=== PATIENT | female | born 2000 | race Caucasian/White ===

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

== ENCOUNTER 2018-03-10 22:29 | Emergency (ER) | payer MEDICAID ==
[2018-03-10] MEDS ORDERED: IBUPROFEN 800 MG TABLET PO ONE (23:58)
--- NOTE | 2018-03-10 23:59 | ER Document Report ---
ED Extremity Problem, Lower - General Chief Complaint: R ankle pain, Possible UTI Stated Complaint: SWOLLEN ANKLE,URINARY ISSUES Time Seen by Provider: 03/10/18 23:44 Mode of Arrival: Wheelchair Information source: Patient Notes: Patient is a 18-year-old female who presents to the ER today for right foot pain in the arch of her foot that has been ongoing for weeks and worsening gradually. Patient denies any injury that she knows of. Patient admits to some swelling and pain that is much worse with ambulating. She denies radiation of the pain anywhere, numbness or tingling. Patient also complains of many months of burning with urination. She denies any abdominal pain or back pain, fever, chills, blood in her urine, history of kidney stones. Patient states she has not gone this checked out because she had no health insurance. TRAVEL OUTSIDE OF THE [place] IN LAST 30 DAYS: No - Related Data Allergies/Adverse Reactions: No Known Allergies Allergy (Verified 07/10/17 10:59) Past Medical History - General Information source: Patient - Social History Smoking Status: Unknown if Ever Smoked Family History: Reviewed & Not Pertinent Patient has suicidal ideation: No Patient has homicidal ideation: No Endocrine Medical History: Reports: Hx Diabetes Mellitus Type 1 Renal/ Medical History: Denies: Hx Peritoneal Dialysis Past Surgical History: Reports: Hx Oral Surgery - Immunizations Immunizations up to date: Yes Hx Diphtheria, Pertussis, Tetanus Vaccination: Yes Review of Systems - Review of Systems Constitutional: No symptoms reported EENT: No symptoms reported Cardiovascular: No symptoms reported Respiratory: No symptoms reported Gastrointestinal: No symptoms reported Genitourinary: See HPI Female Genitourinary: No symptoms reported Musculoskeletal: See HPI Skin: No symptoms reported Hematologic/Lymphatic: No symptoms reported Neurological/Psychological: No symptoms reported Physical Exam - Vital signs Vitals: Temp Pulse Resp BP Pulse Ox 98.3 F 116 H 16 123/71 98 03/10/18 22:38 03/10/18 22:38 03/10/18 22:38 03/10/18 22:38 03/10/18 22:38 - Notes Notes: PHYSICAL EXAMINATION: GENERAL: Well-appearing and in no acute distress. HEAD: Atraumatic, normocephalic. EYES: Pupils equal round and reactive to light, extraocular movements intact, sclera anicteric, conjunctiva are normal. NECK: Normal range of motion, supple without lymphadenopathy LUNGS: CTAB and equal. No wheezes rales or rhonchi. HEART: Regular rate and rhythm without murmurs ABDOMEN: Soft, no tenderness. No guarding, no rebound BACK: no vertebral tenderness, normal ROM GI/: no CVA tenderness EXTREMITIES: Normal range of motion but pain to right foot with ambulation, tender to right arch only, no pitting edema. No cyanosis. NEUROLOGICAL: Cranial nerves grossly intact. Normal sensory/motor exams. PSYCH: Normal mood, normal affect. SKIN: Warm, Dry, normal turgor, no rashes or lesions noted Course - Re-evaluation Re-evalutation: 03/11/18 01:49 Foot x-ray negative for any acute pathology. I will give patient information on plantar fasciitis and see if the stretches help her. I advised that she follow-up with primary care provider. Urinalysis pending at this time. 03/11/18 02:11 Urinalysis negative for infection. - Vital Signs Vital signs: Temp Pulse Resp BP Pulse Ox 98.6 F 100 18 117/69 98 03/11/18 02:40 03/11/18 02:40 03/11/18 02:40 03/11/18 02:40 03/11/18 02:40 - Laboratory Laboratory results interpreted by me: 03/11/18 01:34 Urine Glucose (UA) 50 H Urine Ketones TRACE H Ur Leukocyte Esterase TRACE H Discharge - Discharge Clinical Impression: Plantar fasciitis of right foot Condition: Stable Disposition: HOME, SELF-CARE Instructions: Plantar Fasciitis or Heel Spur ([facility]) Additional Instructions: Plantar fasciitis facts * Plantar fasciitis (inflammation to the plantar fascia ligament) is most commonly caused by strain injury causing micro tears to the ligament as it attaches to the heel bone or other areas of tightness on the sole of the foot. * The plantar fascia is the largest ligament in the human body. * The main symptoms of plantar fasciitis include * heel pain, * foot pain, * stiffness, and * tenderness. * Plantar fasciitis is diagnosed based on the history of the condition as well as the physical examination. * Plantar fasciitis can occur alone or be related to underlying diseases. * Plantar fasciitis is treated by measures that decrease the associated inflammation and avoid reinjury. * Plantar fasciitis is most commonly caused by repetitive strain injury to the ligament of the sole of the foot. Such strain injury can be from excessive running or walking, inadequate foot gear, and jumping injury from landing. * Plantar fasciitis is treated by measures that decrease the associated inflammation and avoid reinjury. Local ice massage applications both reduce pain and inflammation. Physical therapy methods, including stretching exercises, are used to treat and prevent plantar fasciitis. Anti-inflammatory medications, such as ibuprofen (Advil) or cortisone injections, are often helpful. Sports running shoes with soft, cushioned soles can be helpful in reducing irritation of inflamed tissues from plantar fasciitis. Custom orthotic shoe inserts are used to reduce the excess motion of the foot and decrease strain to the plantar fascia. Infrequently, surgery is performed on chronically inflamed plantar fascia (plantar fasciosis) if conservative treatments fail. Prescriptions: Ibuprofen [Motrin 800 mg Tablet] 800 mg PO Q8H PRN #30 tab PRN Reason: Referrals: RICKIE VEGA MD [Primary Care Provider] - Follow up as needed
--- NOTE | 2018-03-11 00:49 | RADIOLOGY REPORT (SQ) ---
EXAM DESCRIPTION: XR FOOT 3 OR MORE VIEWS COMPLETED DATE/TME: 03/10/2018 23:58 CLINICAL HISTORY: 18 years, Female, right foot pain/ arch COMPARISON: None. FINDINGS: 3 views of the right foot. No acute fracture or dislocation. Normal osseous mineralization. Tarsals and metatarsals are appropriately aligned. IMPRESSION: No acute fracture or dislocation. 2011 [employer]- All Rights Reserved
[2018-03-11 02:09] LABS: APPEARANCE,URINE SLIGHTLY-CLOUDY; BILIRUBIN,URINE NEGATIVE (NEGATIVE); COLOR,URINE YELLOW; GLUCOSE, URINE 50 mg/dL (NEGATIVE); KETONES,URINE TRACE mg/dL (NEGATIVE); LEUKOCYTE ESTERASE,URINE TRACE (NEGATIVE); NITRITE,URINE NEGATIVE (NEGATIVE); PROTEIN,URINE NEGATIVE (NEGATIVE); URINE SPECIFIC GRAVITY 1.025; UROBILINOGEN,URINE NEGATIVE mg/dL (<2.0)
[2018-03-11] MEDS ORDERED: IBUPROFEN 800 MG TABLET PO ONE (02:18)
[2018-03-11 02:45] VITALS: BP 117/69
== END 2018-03-11 02:40 | disposition home or self-care (01) ==
LOC: ER 22:29
DX: M72.2 Plantar fascial fibromatosis (principal); M79.671 Pain in right foot; M79.89 Other specified soft tissue disorders; R30.9 Painful micturition, unspecified; E10.9 Type 1 diabetes mellitus without complications
CPT/HCPCS: 99283; 81025; 81001; 73630; J3490

== ENCOUNTER → 2018-04-22 | Outpatient (CLI) | payer MEDICAID ==
--- NOTE | 2018-04-22 17:16 | RADIOLOGY REPORT (SQ) ---
EXAM DESCRIPTION: C SP 3 VWS OR LESS COMPLETED DATE/TIME: 04/22/2018 5:08 pm REASON FOR STUDY: LOW BACK PAIN;CERVICAL RADICULOPATHY M54.5 LOW BACK PAIN M54.12 RADICULOPATHY, C ERVICAL REGION COMPARISON: None. NUMBER OF VIEWS: Choose 2 TECHNIQUE: AP, lateral radiographic images acquired of the cervical spine. LIMITATIONS: None. FINDINGS: MINERALIZATION: Normal. ALIGNMENT: Anatomic. VERTEBRAE: Vertebral bodies of normal height. DISCS: No significant disc space narrowing. No large osteophytes. HARDWARE: None in the spine. SOFT TISSUES: No masses or calcifications. Lung apices clear. OTHER: No other significant finding. IMPRESSION: NO SIGNIFICANT RADIOGRAPHIC FINDING IN THE CERVICAL SPINE. TECHNICAL DOCUMENTATION: JOB ID: [id number] [place]-72 2010 [employer]- All Rights Reserved Reading location - IP/workstation name: [email or web address]
--- NOTE | 2018-04-22 17:17 | RADIOLOGY REPORT (SQ) ---
EXAM DESCRIPTION: LUMBAR SPINE 2 VIEWS COMPLETED DATE/TIME: 04/22/2018 5:08 pm REASON FOR STUDY: LOW BACK PAIN;CERVICAL RADICULOPATHY M54.5 LOW BACK PAIN M54.12 RADICULOPATHY, C ERVICAL REGION COMPARISON: None. NUMBER OF VIEWS: Two views. TECHNIQUE: AP and lateral radiographic images acquired of the lumbar spine. LIMITATIONS: None. FINDINGS: MINERALIZATION: Normal. SEGMENTATION: Normal. No transitional anatomy. ALIGNMENT: Normal. VERTEBRAE: Maintained height. No fracture or worrisome bone lesion. DISCS: Preserved height. No significant osteophytes or end plate irregularity. POSTERIOR ELEMENTS: Pedicles and facets are intact. No pars defect or posterior arch defects. HARDWARE: None in the spine. PARASPINAL SOFT TISSUES: Normal. PELVIS: Intact as visualized. No fractures or worrisome bone lesions. SI joints intact. OTHER: No other significant finding. IMPRESSION: NORMAL 2 VIEW LUMBAR SPINE. TECHNICAL DOCUMENTATION: JOB ID: [id number] [place]-72 2010 [employer]- All Rights Reserved Reading location - IP/workstation name: [employer]
[2018-04-22 17:40] LABS: ABSOLUTE BASOPHILS # (AUTO) 0.1 10^3/uL (0.0-0.2); ABSOLUTE EOSINOPHILS # (AUTO) 0.1 10^3/uL (0.0-0.6); ABSOLUTE LYMPHOCYTES (AUTO) 1.8 10^3/uL (0.5-4.7); ABSOLUTE MONOCYTES (AUTO) 0.4 10^3/uL (0.1-1.4); ABSOLUTE NEUT (AUTO) 5.4 10^3/uL (1.7-8.2); BASOPHILS % (AUTO) 0.9 % (0-2); EOSINOPHILS % (AUTO) 1.4 % (0-6); LYMPHOCYTES % (AUTO) 23.2 % (13-45); MEAN CORPUSCULAR HEMOGLOBIN 29.2 pg (27.0-33.4); MEAN CORPUSCULAR HGB CONC 34.2 g/dL (32.0-36.0); MEAN CORPUSCULAR VOLUME 85 fl (80-97); MONOCYTES % (AUTO) 5.6 % (3-13); PLATELET COUNT 292 10^3/uL (150-450); RED CELL DISTRIBUTION WIDTH 12.5 % (11.5-14.0); SEGMENTED NEUTROPHILS % (AUTO) 68.9 % (42-78); TOTAL CELLS COUNTED % (AUTO) 100 %; WHITE BLOOD COUNT 7.9 10^3/uL (4.0-10.5)
[2018-04-22 18:02] LABS: ALANINE AMINOTRANSFERASE 19 U/L (9-52); ALKALINE PHOSPHATASE 67 U/L (38-126); ANION GAP 12 (5-19); ASPARTATE AMINO TRANSFERASE 15 U/L (14-36); BILIRUBIN,DIRECT 0.2 mg/dL (0.0-0.4); BILIRUBIN,TOTAL 0.3 mg/dL (0.2-1.3); BLOOD UREA NITROGEN 12 mg/dL (7-20); CALCIUM 9.2 mg/dL (8.4-10.2); CARBON DIOXIDE 25 mmol/L (22-30); CHLORIDE 106 mmol/L (98-107); GLUCOSE 205 mg/dL (75-110); POTASSIUM 4.3 mmol/L (3.6-5.0); SODIUM 142.6 mmol/L (137-145); TOTAL PROTEIN 6.8 g/dL (6.3-8.2)
[2018-04-24 11:39] LABS: CREATININE URINE 122.9 mg/dL (Not Estab.); MICROALBUMIN URINE 3.6 ug/mL (Not Estab.)
== END ==
LOC: OD 16:33
PROVIDERS: ATTEND Family Medicine
DX: M54.5 Low back pain (principal); M54.12 Radiculopathy, cervical region; E10.9 Type 1 diabetes mellitus without complications; R00.2 Palpitations
CPT/HCPCS: 36415; 72040; 72100; 80053; 82043; 82570; 83036; 84443; 85025

== ENCOUNTER 2018-05-14 01:49 | Emergency (ER) | payer MEDICAID ==
[2018-05-14] MEDS ORDERED: NORMAL SALINE 1000 ML 1,000 ML IV ONE (02:51)
[2018-05-14 02:53] LABS: ABSOLUTE BASOPHILS # (AUTO) 0.1 10^3/uL (0.0-0.2); ABSOLUTE EOSINOPHILS # (AUTO) 0.1 10^3/uL (0.0-0.6); ABSOLUTE LYMPHOCYTES (AUTO) 2.8 10^3/uL (0.5-4.7); ABSOLUTE MONOCYTES (AUTO) 0.8 10^3/uL (0.1-1.4); ABSOLUTE NEUT (AUTO) 5.6 10^3/uL (1.7-8.2); BASOPHILS % (AUTO) 0.8 % (0-2); EOSINOPHILS % (AUTO) 1.5 % (0-6); LYMPHOCYTES % (AUTO) 29.9 % (13-45); MEAN CORPUSCULAR HGB CONC 34.2 g/dL (32.0-36.0); MEAN CORPUSCULAR VOLUME 85 fl (80-97); MONOCYTES % (AUTO) 8.3 % (3-13); PLATELET COUNT 319 10^3/uL (150-450); RED BLOOD COUNT 4.84 10^6/uL (3.72-5.28); RED CELL DISTRIBUTION WIDTH 12.7 % (11.5-14.0); SEGMENTED NEUTROPHILS % (AUTO) 59.5 % (42-78); TOTAL CELLS COUNTED % (AUTO) 100 %; WHITE BLOOD COUNT 9.4 10^3/uL (4.0-10.5)
[2018-05-14 03:08] LABS: ALANINE AMINOTRANSFERASE 15 U/L (9-52); ALKALINE PHOSPHATASE 93 U/L (38-126); ANION GAP 10 (5-19); ASPARTATE AMINO TRANSFERASE 15 U/L (14-36); BILIRUBIN,DIRECT 0.4 mg/dL (0.0-0.4); BILIRUBIN,TOTAL 0.4 mg/dL (0.2-1.3); BLOOD UREA NITROGEN 9 mg/dL (7-20); CALCIUM 9.4 mg/dL (8.4-10.2); CARBON DIOXIDE 23 mmol/L (22-30); CHLORIDE 107 mmol/L (98-107); GLUCOSE 153 mg/dL (75-110); POTASSIUM 3.8 mmol/L (3.6-5.0); SODIUM 139.9 mmol/L (137-145)
[2018-05-14] MEDS ORDERED: ONDANSETRON HCL INJ/PF 4 MG/2 ML SDV IV ONE (03:38)
[2018-05-14] MEDS ORDERED: MORPHINE SULFATE 10 MG/ML INJ IV ONE (03:38)
--- NOTE | 2018-05-14 03:39 | ER Document Report ---
ED GI/ - General Chief Complaint: Abdominal Pain Stated Complaint: ABDOMINAL PAIN Time Seen by Provider: 05/14/18 03:30 Notes: Patient is a 18-year-old female that comes to the emergency department for chief complaint of right lower abdominal pain. She states that she suddenly felt a sharp pain that made her gasp and grabbed her abdomen, she felt nauseated , she states that the very sharp pain has begun to subside and now it feels like sharp and intermittent pain which is not as bad. She still feels nausea. She denies vomiting. She denies injury, vaginal bleeding or discharge, dysuria , flank pain. She is a type I diabetic on an insulin pump. Only surgery reported is dental. TRAVEL OUTSIDE OF THE [place] IN LAST 30 DAYS: No - Related Data Allergies/Adverse Reactions: No Known Allergies Allergy (Verified 07/10/17 10:59) Past Medical History - General Information source: Patient - Social History Smoking Status: Never Smoker Frequency of alcohol use: None Drug Abuse: None Lives with: Family Family History: Reviewed & Not Pertinent Patient has suicidal ideation: No Patient has homicidal ideation: No Endocrine Medical History: Reports: Hx Diabetes Mellitus Type 1 Renal/ Medical History: Denies: Hx Peritoneal Dialysis Past Surgical History: Reports: Hx Oral Surgery - wisdom teeth - Immunizations Immunizations up to date: Yes Hx Diphtheria, Pertussis, Tetanus Vaccination: Yes Review of Systems - Review of Systems Constitutional: No symptoms reported EENT: No symptoms reported Cardiovascular: No symptoms reported Respiratory: No symptoms reported Gastrointestinal: See HPI Genitourinary: See HPI Female Genitourinary: See HPI Musculoskeletal: No symptoms reported Skin: No symptoms reported Hematologic/Lymphatic: No symptoms reported Neurological/Psychological: No symptoms reported Physical Exam - Vital signs Vitals: Temp Pulse Resp BP Pulse Ox 98.6 F 62 19 123/71 93 05/14/18 02:01 05/14/18 02:01 05/14/18 02:01 05/14/18 02:01 05/14/18 02:01 - Notes Notes: GENERAL: Alert, interacts well. No acute distress. HEAD: Normocephalic, atraumatic. EYES: Pupils equal, round, and reactive to light. Extraocular movements intact. ENT: Oral mucosa moist, tongue midline. NECK: Full range of motion. Supple. Trachea midline. LUNGS: Clear to auscultation bilaterally, no wheezes, rales, or rhonchi. No respiratory distress. HEART: Regular rate and rhythm. No murmur ABDOMEN: Tenderness in the right pelvic area, no specific McBurney's point tenderness, remaining abdomen soft and benign. No rigidity, guarding, or rebound tenderness. EXTREMITIES: Moves all 4 extremities spontaneously. No edema, normal radial and dorsalis pedis pulses bilaterally. No cyanosis. BACK: no cervical, thoracic, lumbar midline tenderness. No saddle anesthesia, normal distal neurovascular exam. NEUROLOGICAL: Alert and oriented x3. Normal speech. [cranial nerves II through XII grossly intact]. PSYCH: Normal affect, normal mood. SKIN: Warm, dry, normal turgor. No rashes or lesions noted. Course - Re-evaluation Re-evalutation: No official read is given but preliminary results given by [employer] and early images indicate free fluid around the right ovarian area, no cyst, no torsion, good blood flow to the area/ovary, no acute findings otherwise. CBC, chemistry, urinalysis generally unremarkable. Glucose is 150, anion gap and bicarbonate are normal. After medications patient asymptomatic. Patient's physical examination does indicate pelvic pain. She declines pelvic exam. Clinical picture is most consistent with ovarian cyst that has ruptured. No additional concerns at this time. I discussed results with patient. She is very satisfied with this. Discussed medications, given a few pain medications to go home with from here, discussed expectations, follow-up, and return precautions. Patient states understanding and agreement. - Vital Signs Vital signs: Temp Pulse Resp BP Pulse Ox 98.1 F 93 18 105/53 L 100 05/14/18 07:12 05/14/18 07:12 05/14/18 07:12 05/14/18 07:12 05/14/18 07:12 - Laboratory Result Diagrams: 05/14/18 02:45 05/14/18 02:45 Laboratory results interpreted by me: 05/14/18 05/14/18 02:45 05:30 Creatinine 0.42 L Glucose 153 H Urine Glucose (UA) >=1000 H Urine Ketones 100 H Ur Leukocyte Esterase TRACE H Discharge - Discharge Clinical Impression: Pelvic pain Condition: Stable Disposition: HOME, SELF-CARE Additional Instructions: Your evaluation is consistent with a ruptured ovarian cyst. Symptoms from this should resolve with time. You have been provided with a few pain medications if needed, you can take ibuprofen for pain as well. Follow-up with primary care. Return if you worsen including severe pain, vomiting, fever of 100.4 or greater, or any other concerning symptoms. Referrals: ALEE PERRIN MD [COMMUNITY BASED STAFF] - Follow up as needed
[2018-05-14 06:35] LABS: APPEARANCE,URINE CLEAR; BILIRUBIN,URINE NEGATIVE (NEGATIVE); COLOR,URINE STRAW; GLUCOSE, URINE >=1000 mg/dL (NEGATIVE); KETONES,URINE 100 mg/dL (NEGATIVE); LEUKOCYTE ESTERASE,URINE TRACE (NEGATIVE); NITRITE,URINE NEGATIVE (NEGATIVE); PROTEIN,URINE NEGATIVE (NEGATIVE); URINE SPECIFIC GRAVITY 1.022; UROBILINOGEN,URINE NEGATIVE mg/dL (<2.0)
[2018-05-14] MEDS ORDERED: HYDROCODONE/ACETAMINOPHEN 5-325 MG (6 TAB/ER DISP) PO PRN (07:03)
[2018-05-14 07:14] VITALS: BP 105/53
--- NOTE | 2018-05-14 07:51 | RADIOLOGY REPORT (SQ) ---
EXAM DESCRIPTION: US TRANSVAGINAL COMPLETED DATE/TME: 05/14/2018 03:38 CLINICAL HISTORY: 18 years, Female, right pelvic pain, nausea COMPARISON: None. TECHNIQUE: Complete pelvic ultrasound with transvaginal imaging. Limited color and spectral Doppler imaging of the ovaries. FINDINGS: The cervix measures 1.7 cm in length. The uterus measures 7.1 x 4.7 x 5.9 cm. Endometrial thickness of 1.9 cm. No myometrial abnormalities. Small amount of free pelvic fluid. The left ovary is not identified. No large adnexal masses. The right ovary measures 2.1 x 3.0 x 2.3 cm. Limited color spectral Doppler imaging demonstrates flow in the right ovary. IMPRESSION: 1. Thickening of the endometrium measuring 1.9 cm. This could be seen with endometrial hyperplasia. Follow-up pelvic ultrasound in 6 weeks recommended. 2. Small amount of free pelvic fluid. This may be physiologic. 2011 [employer]- All Rights Reserved
--- NOTE | 2018-05-14 15:28 | EKG REPORT ---
SEVERITY:- NORMAL ECG - SINUS RHYTHM : Confirmed by: Ivonne Roberts MD 14-May-2018 15:27:22
== END 2018-05-14 07:16 | disposition home or self-care (01) ==
LOC: ER 01:49
DX: R10.2 Pelvic and perineal pain (principal); R11.0 Nausea; E10.9 Type 1 diabetes mellitus without complications; Z96.41 Presence of insulin pump (external) (internal)
CPT/HCPCS: 93005; 99284; 96374; 36415; 83690; 85025; 81025; 80053; 81001; 76830; 93976; 93010; J2270; J2405

== ENCOUNTER 2018-06-24 10:05 | Emergency (ER) | payer MEDICAID ==
[2018-06-24] MEDS ORDERED: NORMAL SALINE 1000 ML 1,000 ML IV PRN (10:14)
[2018-06-24] MEDS ORDERED: NORMAL SALINE 1000 ML 1,000 ML IV ONE ×2 (10:14→12:46)
--- NOTE | 2018-06-24 10:18 | ER Document Report ---
ED Medical Screen (RME) - General Chief Complaint: Nausea/Vomiting/Diarrhea Stated Complaint: VOMITING/NAUSEA Time Seen by Provider: 06/24/18 10:14 Notes: 18 years old male with a history of type 1 diabetes on insulin pump, presents today with general malaise fatigue weakness tiredness vomited couple of times and had couple of loose bowel movements. Since yesterday. The whole family is sick with viral illness. Denies any dysuria frequency urgency. Denies any earache sore throat productive cough. On examination-appears to be moderate discomfort. TRAVEL OUTSIDE OF THE [place] IN LAST 30 DAYS: No - Related Data Allergies/Adverse Reactions: No Known Allergies Allergy (Verified 06/24/18 10:06) Past Medical History Endocrine Medical History: Reports: Hx Diabetes Mellitus Type 1 Renal/ Medical History: Denies: Hx Peritoneal Dialysis Past Surgical History: Reports: Hx Oral Surgery - wisdom teeth - Immunizations Immunizations up to date: Yes Hx Diphtheria, Pertussis, Tetanus Vaccination: Yes Physical Exam - Vital signs Vitals: Temp Pulse Resp BP Pulse Ox 99.6 F 124 H 14 121/73 96 06/24/18 10:09 06/24/18 10:09 06/24/18 10:09 06/24/18 10:09 06/24/18 10:09 Course - Vital Signs Vital signs: Temp Pulse Resp BP Pulse Ox 99.6 F 124 H 14 121/73 96 06/24/18 10:09 06/24/18 10:09 06/24/18 10:09 06/24/18 10:09 06/24/18 10:09
[2018-06-24] MEDS ORDERED: ONDANSETRON HCL INJ/PF 4 MG/2 ML SDV IV ONE (10:54)
--- NOTE | 2018-06-24 11:06 | ER Document Report ---
ED General - General Chief Complaint: Nausea/Vomiting/Diarrhea Stated Complaint: VOMITING/NAUSEA Time Seen by Provider: 06/24/18 10:14 TRAVEL OUTSIDE OF THE [place] IN LAST 30 DAYS: No - HPI Notes: Patient is a 18-year-old female with a history of insulin-dependent diabetes who presents to the ED with mother complaining of nausea, vomiting, diarrhea over the last day. Patient states that she vomited twice, but does have continued nausea. Her last emesis was yesterday. She has had 2 loose stools as well without any melena or hematochezia. Patient states that she has generalized abdominal cramping. Patient states that she had symptoms like this 2 weeks ago and passed it to another household member who has continued to pass this illness throughout the home that has made its way back to her yesterday. Patient states that she started seeing ketones in her home urinary test that she wanted to get evaluated and make sure that she is not going into DKA. Denies any drug allergies. No other concerns or complaints. Her last menstrual period was a few days ago. Denies any headache, fever, changes in mentation/behavior, URI, sore throat, chest pain, palpitations, syncope, cough, shortness of breath, wheeze, dyspnea, urinary retention, dysuria, hematuria, back pain, or rash. - Related Data Allergies/Adverse Reactions: No Known Allergies Allergy (Verified 06/24/18 10:06) Past Medical History - Social History Smoking Status: Never Smoker Chew tobacco use (# tins/day): No Frequency of alcohol use: None Drug Abuse: None Family History: Reviewed & Not Pertinent Patient has suicidal ideation: No Patient has homicidal ideation: No Endocrine Medical History: Reports: Hx Diabetes Mellitus Type 1 Renal/ Medical History: Denies: Hx Peritoneal Dialysis Past Surgical History: Reports: Hx Oral Surgery - wisdom teeth - Immunizations Immunizations up to date: Yes Hx Diphtheria, Pertussis, Tetanus Vaccination: Yes Review of Systems - Review of Systems -: Yes All other systems reviewed and negative Physical Exam - Vital signs Vitals: Temp Pulse Resp BP Pulse Ox 99.6 F 124 H 14 121/73 96 06/24/18 10:09 06/24/18 10:09 06/24/18 10:09 06/24/18 10:09 06/24/18 10:09 - Notes Notes: PHYSICAL EXAMINATION: GENERAL: Well-appearing, well-nourished and in no acute distress. A&Ox4. Answers questions appropriately. HEAD: Atraumatic, normocephalic. EYES: Pupils equal round and reactive to light, extraocular movements intact, sclera anicteric, conjunctiva are normal. ENT:Nares patent and without discharge. oropharynx clear without exudates. No tonsilar hypertrophy or erythema. Moist mucous membranes. NECK: Normal range of motion, supple without lymphadenopathy LUNGS: Breath sounds clear to auscultation bilaterally and equal. No wheezes rales or rhonchi. HEART: Regular rate and rhythm without murmurs, rubs, gallops. ABDOMEN: Soft, nontender, nondistended abdomen. No guarding, no rebound. No masses appreciated. Normal bowel sounds present. No CVA tenderness bilaterally. Musculoskeletal: FROM to passive/active. Strength 5+/5. Extremities: No cyanosis, clubbing, or edema b/l. Peripheral pulses 2+. Capillary refill less than 3 seconds. NEUROLOGICAL: Cranial nerves grossly intact. Normal speech, normal gait. PSYCH: Normal mood, normal affect. SKIN: Warm, Dry, normal turgor, no rashes or lesions noted. Course - Re-evaluation Re-evalutation: 06/24/18 12:19 Patient is an afebrile, well-hydrated, 18-year-old female who presents to the ED with nausea/vomiting/diarrhea, suspect viral gastroenteritis. Vitals are acceptable without any significant tachycardia, tachypnea, or hypoxia. PE is otherwise unremarkable. Patient's abdomen is soft nontender currently. She is nontoxic-appearing and is tolerating p.o. without difficulties. CBC, CMP, lipase, urinalysis, hCG, venous blood gas were all unremarkable for any acute pathology. No further labs or imaging warranted at this time. Patient has a known illness around her household that has the same symptoms. Low suspicion/ risk for acute appendicitis, bowel obstruction, acute cholecystitis, acute cholangitis, perforated diverticulitis, incarcerated hernia, pancreatitis, perforated ulcer, peritonitis, sepsis, pelvic inflammatory disease, ectopic , tubo-ovarian abscess, ovarian torsion, or other systemic emergent condition at this time. Patient is aware that her condition can change from initial presentation and she needs to monitor symptoms closely and seek medical attention if any acute changes. I will send her home with a prescription for Zofran. Conservative measures otherwise for symptoms. Recheck with your PCM in 2-3 days. Consider consult with a power plant assistant. Return to the ED with any worsening/concerning symptoms otherwise as reviewed in discharge. Patient is in agreement. - Vital Signs Vital signs: Temp Pulse Resp BP Pulse Ox 99.6 F 124 H 14 121/73 96 06/24/18 10:09 06/24/18 10:09 06/24/18 10:09 06/24/18 10:09 06/24/18 10:09 - Laboratory Result Diagrams: 06/24/18 10:34 06/24/18 10:34 Laboratory results interpreted by me: 06/24/18 06/24/18 06/24/18 10:15 10:34 10:34 Seg Neutrophils % 80.9 H Lymphocytes % 11.6 L Glucose 155 H POC Glucose 177 H Lipase Urine Glucose (UA) Urine Ketones Ur Leukocyte Esterase 06/24/18 06/24/18 10:34 10:34 Seg Neutrophils % Lymphocytes % Glucose POC Glucose Lipase 17.9 L Urine Glucose (UA) >=500 H Urine Ketones 20 H Ur Leukocyte Esterase MODERATE H Discharge - Discharge Clinical Impression: Nausea vomiting and diarrhea Condition: Stable Disposition: HOME, SELF-CARE Instructions: Antinausea Medication ([facility]), Diarrhea, Nonspecific ([facility]) Additional Instructions: Maintain adequate fluid and food intake [place] diet ([employer] Bananas, rice, apples, toast, etc Zofran as needed tylenol if needed Monitor for any worsening symptoms Make sure you are staying hydrated enough to urinate and have normal BM's Recheck with your PCM in 2-3 days Consider consult with Gastroenterology for ongoing/worsening symptoms Return to the ED with any worsening symptoms and/or development of fever, headache, chest pain, palpitations, syncope, shortness of breath, trouble breathing, abdominal pain, n/v/d, blood in stool/urine, weakness, or other worsening symptoms that are concerning to you. Prescriptions: Loperamide HCl [Imodium 2 mg Capsule] 2 mg PO PRN PRN #21 cap PRN Reason: Ondansetron [Zofran Odt 4 mg Tablet] 1 - 2 tab PO Q4H PRN #15 tab.rapdis PRN Reason: For Nausea/Vomiting Referrals: GLADYS PASCAL MD [ACTIVE STAFF] - Follow up as needed
[2018-06-24 11:07] LABS: ABSOLUTE MONOCYTES (AUTO) 0.6 10^3/uL (0.1-1.4); ABSOLUTE NEUT (AUTO) 7.1 10^3/uL (1.7-8.2); BASOPHILS % (AUTO) 0.4 % (0-2); EOSINOPHILS % (AUTO) 0.5 % (0-6); HEMATOCRIT 43.2 % (36.0-47.0); HEMOGLOBIN 15.1 g/dL (12.0-15.5); LYMPHOCYTES % (AUTO) 11.6 % (13-45); MEAN CORPUSCULAR HEMOGLOBIN 29.4 pg (27.0-33.4); MEAN CORPUSCULAR VOLUME 84 fl (80-97); MONOCYTES % (AUTO) 6.6 % (3-13); PLATELET COUNT 339 10^3/uL (150-450); RED BLOOD COUNT 5.13 10^6/uL (3.72-5.28); RED CELL DISTRIBUTION WIDTH 12.5 % (11.5-14.0); SEGMENTED NEUTROPHILS % (AUTO) 80.9 % (42-78); TOTAL CELLS COUNTED % (AUTO) 100 %; WHITE BLOOD COUNT 8.8 10^3/uL (4.0-10.5)
[2018-06-24 11:08] LABS: VENOUS BLOOD HCO3 26.8 mmol/L (20-32); VENOUS BLOOD PCO2 42.3 mmHg (35-63); VENOUS BLOOD PH 7.42 (7.30-7.42)
[2018-06-24] MEDS ORDERED: MORPHINE SULFATE 10 MG/ML INJ IV ONE (11:16)
[2018-06-24 11:19] LABS: APPEARANCE,URINE SLIGHTLY-CLOUDY; BILIRUBIN,URINE NEGATIVE (NEGATIVE); COLOR,URINE YELLOW; GLUCOSE, URINE >=500 mg/dL (NEGATIVE); KETONES,URINE 20 mg/dL (NEGATIVE); LEUKOCYTE ESTERASE,URINE MODERATE (NEGATIVE); NITRITE,URINE NEGATIVE (NEGATIVE); PROTEIN,URINE NEGATIVE (NEGATIVE); URINE SPECIFIC GRAVITY 1.016; UROBILINOGEN,URINE NEGATIVE mg/dL (<2.0)
[2018-06-24 11:31] LABS: ALANINE AMINOTRANSFERASE 21 U/L (9-52); ALBUMIN 4.4 g/dL (3.5-5.0); ALKALINE PHOSPHATASE 73 U/L (38-126); ANION GAP 13 (5-19); ASPARTATE AMINO TRANSFERASE 17 U/L (14-36); BILIRUBIN,DIRECT 0.2 mg/dL (0.0-0.4); BILIRUBIN,TOTAL 0.8 mg/dL (0.2-1.3); BLOOD UREA NITROGEN 10 mg/dL (7-20); CALCIUM 9.6 mg/dL (8.4-10.2); CARBON DIOXIDE 28 mmol/L (22-30); CHLORIDE 100 mmol/L (98-107); GLUCOSE 155 mg/dL (75-110); POTASSIUM 4.3 mmol/L (3.6-5.0); SODIUM 140.7 mmol/L (137-145); TOTAL PROTEIN 7.5 g/dL (6.3-8.2)
[2018-06-24 12:13] LABS: A TYPE INFLUENZA AG NEGATIVE (NEGATIVE); B INFLUENZA AG NEGATIVE (NEGATIVE)
[2018-06-24 13:57] VITALS: BP 112/60
== END 2018-06-24 14:05 | disposition home or self-care (01) ==
LOC: ER 10:05
DX: R11.2 Nausea with vomiting, unspecified (principal); R19.7 Diarrhea, unspecified; R10.84 Generalized abdominal pain; E10.9 Type 1 diabetes mellitus without complications
CPT/HCPCS: 99284; 96361; 96374; 96375; 36415; 82962; 83690; 85025; 81025; 80053; 81001; 82803; 87804; J2270; J2405; J7030

== ENCOUNTER 2018-07-03 14:26 | Emergency (ER) | payer SELFPAY ==
[2018-07-03] MEDS ORDERED: NORMAL SALINE 1000 ML 1,000 ML IV ONE (15:38)
[2018-07-03] MEDS ORDERED: IPRATROPIUM/ALBUTEROL 0.5-2.5 MG/3 ML AMPUL NEB ONE (15:38)
--- NOTE | 2018-07-03 15:43 | RADIOLOGY REPORT (SQ) ---
EXAM DESCRIPTION: CHEST 2 VIEWS COMPLETED DATE/TIME: 07/03/2018 3:25 pm REASON FOR STUDY: sob COMPARISON: June 2017 EXAM PARAMETERS: NUMBER OF VIEWS: two views TECHNIQUE: Digital Frontal and Lateral radiographic views of the chest acquired. RADIATION DOSE: NA LIMITATIONS: none FINDINGS: LUNGS AND PLEURA: No opacities, masses or pneumothorax. No pleural effusion. MEDIASTINUM AND HILAR STRUCTURES: No masses or contour abnormalities. HEART AND VASCULAR STRUCTURES: Heart normal size. No evidence for failure. BONES: No acute findings. HARDWARE: None in the chest. OTHER: No other significant finding. IMPRESSION: NO ACUTE RADIOGRAPHIC FINDING IN THE CHEST. TECHNICAL DOCUMENTATION: JOB ID: [id number] [employer]- All Rights Reserved Reading location - IP/workstation name: [email or web address]
[2018-07-03 16:08] LABS: ABSOLUTE BASOPHILS # (AUTO) 0.1 10^3/uL (0.0-0.2); ABSOLUTE EOSINOPHILS # (AUTO) 0.1 10^3/uL (0.0-0.6); ABSOLUTE LYMPHOCYTES (AUTO) 2.3 10^3/uL (0.5-4.7); ABSOLUTE MONOCYTES (AUTO) 0.6 10^3/uL (0.1-1.4); ABSOLUTE NEUT (AUTO) 5.9 10^3/uL (1.7-8.2); BASOPHILS % (AUTO) 1.2 % (0-2); EOSINOPHILS % (AUTO) 1.5 % (0-6); HEMATOCRIT 42.9 % (36.0-47.0); HEMOGLOBIN 15.2 g/dL (12.0-15.5); MEAN CORPUSCULAR HEMOGLOBIN 29.7 pg (27.0-33.4); MEAN CORPUSCULAR HGB CONC 35.4 g/dL (32.0-36.0); MEAN CORPUSCULAR VOLUME 84 fl (80-97); MONOCYTES % (AUTO) 6.7 % (3-13); PLATELET COUNT 393 10^3/uL (150-450); RED BLOOD COUNT 5.11 10^6/uL (3.72-5.28); RED CELL DISTRIBUTION WIDTH 12.3 % (11.5-14.0); SEGMENTED NEUTROPHILS % (AUTO) 65.6 % (42-78); TOTAL CELLS COUNTED % (AUTO) 100 %
[2018-07-03] MEDS ORDERED: ONDANSETRON HCL INJ/PF 4 MG/2 ML SDV IV ONE (16:08)
[2018-07-03] MEDS ORDERED: PROCHLORPERAZINE EDISYLATE INJ 10 MG/2 ML VIAL IV ONE (16:08)
[2018-07-03 16:32] LABS: BLOOD UREA NITROGEN 13 mg/dL (7-20); GLUCOSE 148 mg/dL (75-110)
[2018-07-03 16:33] LABS: ANION GAP 14 (5-19); CARBON DIOXIDE 27 mmol/L (22-30); CHLORIDE 102 mmol/L (98-107); POTASSIUM 4.7 mmol/L (3.6-5.0); SODIUM 143.3 mmol/L (137-145)
[2018-07-03 17:05] LABS: VENOUS BLOOD BASE EXCESS -2.5 mmol/L; VENOUS BLOOD HCO3 23.9 mmol/L (20-32); VENOUS BLOOD PH 7.32 (7.30-7.42)
--- NOTE | 2018-07-03 18:00 | ER Document Report ---
ED General - General Chief Complaint: Breathing Difficulty Stated Complaint: BREATHING PROBLEMS Time Seen by Provider: 07/03/18 14:58 TRAVEL OUTSIDE OF THE [place] IN LAST 30 DAYS: No - HPI Patient complains to provider of: Difficulty breathing Notes: Patient states to painful breathing was seen by her PCP today and encouraged coming to the ER for further evaluation for possible DVT. Patient is a type I diabetic and does have an insulin pump patient states recently changed her site to her left arm. Patient states the change in size approximately 2-3 days. Patient otherwise is having some lightheaded and dizziness. Denies any fever chills nausea vomiting diarrhea denies any recent travel denies a history of PE denies history of smoking denies any other lung pathology COPD or asthma. Patient is resting comfortably upon my evaluation. Patient states the pain is similar to whenever exerting herself only cold Sunday burning sensation within the lungs. - Related Data Allergies/Adverse Reactions: No Known Allergies Allergy (Verified 07/03/18 14:33) Past Medical History - Social History Smoking Status: Never Smoker Chew tobacco use (# tins/day): No Frequency of alcohol use: None Drug Abuse: None Family History: Reviewed & Not Pertinent Patient has suicidal ideation: No Patient has homicidal ideation: No Endocrine Medical History: Reports: Hx Diabetes Mellitus Type 1 Renal/ Medical History: Denies: Hx Peritoneal Dialysis Past Surgical History: Reports: Hx Oral Surgery - wisdom teeth - Immunizations Immunizations up to date: Yes Hx Diphtheria, Pertussis, Tetanus Vaccination: Yes Review of Systems - Review of Systems Constitutional: No symptoms reported EENT: No symptoms reported Cardiovascular: No symptoms reported Respiratory: Other - Painful respirations Gastrointestinal: No symptoms reported Genitourinary: No symptoms reported Female Genitourinary: No symptoms reported Musculoskeletal: No symptoms reported Skin: No symptoms reported Hematologic/Lymphatic: No symptoms reported Neurological/Psychological: No symptoms reported Physical Exam - Vital signs Vitals: Temp Pulse Resp BP Pulse Ox 99.1 F 109 H 16 102/85 97 07/03/18 14:37 07/03/18 14:37 07/03/18 14:37 07/03/18 14:37 07/03/18 14:37 Interpretation: Normal - General General appearance: Appears well, Alert - HEENT Head: Normocephalic, Atraumatic Eyes: Normal Pupils: PERRL - Respiratory Respiratory status: No respiratory distress Chest status: Nontender Breath sounds: Wheezing Chest palpation: Normal - Cardiovascular Rhythm: Regular Heart sounds: Normal auscultation Murmur: No - Abdominal Inspection: Normal Distension: No distension Bowel sounds: Normal Tenderness: Nontender Organomegaly: No organomegaly - Back Back: Normal, Nontender - Extremities General upper extremity: Normal inspection, Nontender, Normal color, Normal ROM , Normal temperature General lower extremity: Normal inspection, Nontender, Normal color, Normal ROM , Normal temperature, Normal weight bearing. No: Raciel's sign - Neurological Neuro grossly intact: Yes Cognition: Normal Orientation: AAOx4 Pat Coma Scale Eye Opening: Spontaneous Pat Coma Scale Verbal: Oriented Pat Coma Scale Motor: Obeys Commands [place] Coma Scale Total: 15 Speech: Normal Motor strength normal: LUE, RUE, LLE, RLE Sensory: Normal - Psychological Associated symptoms: Normal affect, Normal mood - Skin Skin Temperature: Warm Skin Moisture: Dry Skin Color: Normal Course - Re-evaluation Re-evalutation: 07/03/18 22:30 Laboratory testing not show any acute pathology chest x-ray is also negative. Patient's d-dimer is also negative. Slight wheezing in the bases improved after breathing treatment. Possible early presentation of a viral illness. No critical pathology seen patient will be encouraged to follow-up primary care physician return to ER symptoms worsen use the inhaler was given here in ER 2 puffs every 4 hours. - Vital Signs Vital signs: Temp Pulse Resp BP Pulse Ox 99.2 F 111 H 18 121/69 97 07/03/18 18:34 07/03/18 18:34 07/03/18 18:34 07/03/18 18:34 07/03/18 14:37 - Laboratory Result Diagrams: 07/03/18 15:51 07/03/18 15:51 Laboratory results interpreted by me: 07/03/18 15:51 Creatinine 0.51 L Glucose 148 H Discharge - Discharge Clinical Impression: Painful breathing, Lightheadedness Condition: Good Disposition: HOME, SELF-CARE Instructions: Dizziness ([facility]), Dyspnea, Nonspecific ([facility]) Additional Instructions: Your laboratory studies did not show any signs of infection or any signs of blood clots. This could be the beginning of a viral illness. I highly recommend she follow-up with your primary care physician return to ER symptoms worsen. use the inhaler that we gave you here in the ER 2 puffs every 4 hours as needed for any shortness of breath. Please make sure you are drinking plenty water
[2018-07-03] MEDS ORDERED: ALBUTEROL SULFATE HFA (90 MCG/PUFF) 8 GM MDI (1 MDI/ER DISP) IH ONE (18:01)
[2018-07-03 18:35] VITALS: BP 121/69
== END 2018-07-03 18:55 | disposition home or self-care (01) ==
LOC: ER 14:26
DX: R07.1 Chest pain on breathing (principal); R06.2 Wheezing; E10.9 Type 1 diabetes mellitus without complications; Z96.41 Presence of insulin pump (external) (internal); R42 Dizziness and giddiness
CPT/HCPCS: 94640; 99285; 96360; 36415; 83735; 84703; 85025; 80048; 85379; 82803; 71046; J7030; J3490; J7620

== ENCOUNTER 2018-10-23 22:40 | Emergency (ER) | payer MEDICAID ==
--- NOTE | 2018-10-24 01:46 | RADIOLOGY REPORT (SQ) ---
EXAM DESCRIPTION: XR FOOT 3 OR MORE VIEWS COMPLETED DATE/TME: 10/23/2018 23:35 CLINICAL HISTORY: 18 years, Female, pain COMPARISON: None. FINDINGS: No fracture or dislocation. Soft tissues are unremarkable. IMPRESSION: No acute abnormality.
[2018-10-24 01:59] LABS: ABSOLUTE BASOPHILS # (AUTO) 0.1 10^3/uL (0.0-0.2); ABSOLUTE EOSINOPHILS # (AUTO) 0.1 10^3/uL (0.0-0.6); ABSOLUTE LYMPHOCYTES (AUTO) 2.8 10^3/uL (0.5-4.7); ABSOLUTE MONOCYTES (AUTO) 0.9 10^3/uL (0.1-1.4); ABSOLUTE NEUT (AUTO) 5.5 10^3/uL (1.7-8.2); EOSINOPHILS % (AUTO) 1.1 % (0-6); HEMATOCRIT 39.1 % (36.0-47.0); HEMOGLOBIN 13.7 g/dL (12.0-15.5); LYMPHOCYTES % (AUTO) 29.8 % (13-45); MEAN CORPUSCULAR HEMOGLOBIN 29.8 pg (27.0-33.4); MEAN CORPUSCULAR VOLUME 85 fl (80-97); MONOCYTES % (AUTO) 9.3 % (3-13); PLATELET COUNT 339 10^3/uL (150-450); RED CELL DISTRIBUTION WIDTH 13.2 % (11.5-14.0); SEGMENTED NEUTROPHILS % (AUTO) 58.8 % (42-78); TOTAL CELLS COUNTED % (AUTO) 100 %; WHITE BLOOD COUNT 9.3 10^3/uL (4.0-10.5)
--- NOTE | 2018-10-24 02:53 | ER Document Report ---
ED General - General Chief Complaint: Foot Injury Stated Complaint: FOOT PAIN Time Seen by Provider: 10/24/18 00:13 Primary Care Provider: ALEE PERRIN MD [Primary Care Provider] - Follow up as needed TRAVEL OUTSIDE OF THE [place] IN LAST 30 DAYS: No - HPI Patient complains to provider of: Left foot pain rectal bleeding Notes: Patient patient coming for evaluation of left foot pain and rectal bleeding. Patient states rectal bleeding ongoing for the last 4 years intermittently. 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 Patient states bright red blood in the toilet bowl and also upon wiping. Patient denies any changes in her stool denies any trauma currently resting denies any abdominal pain. Denies fevers chills nausea vomiting Patient also complains of left foot pain. Patient points to the base of the fifth states that over 48 hours ago patient was moving stepped wrong and had pain to the dorsum of the foot. Patient states the pain continued patient otherwise is resting comfortably upon my evaluation. - Related Data Allergies/Adverse Reactions: No Known Allergies Allergy (Verified 07/03/18 14:33) Past Medical History - Social History Smoking Status: Never Smoker Family History: Reviewed & Not Pertinent Patient has suicidal ideation: No Patient has homicidal ideation: No Endocrine Medical History: Reports: Hx Diabetes Mellitus Type 1 Renal/ Medical History: Denies: Hx Peritoneal Dialysis Past Surgical History: Reports: Hx Oral Surgery - wisdom teeth - Immunizations Immunizations up to date: Yes Hx Diphtheria, Pertussis, Tetanus Vaccination: Yes Review of Systems - Review of Systems Constitutional: No symptoms reported EENT: No symptoms reported Cardiovascular: No symptoms reported Respiratory: No symptoms reported Gastrointestinal: Rectal bleeding Genitourinary: No symptoms reported Female Genitourinary: No symptoms reported Musculoskeletal: Other - Foot pain Skin: No symptoms reported Hematologic/Lymphatic: No symptoms reported Neurological/Psychological: No symptoms reported -: Yes All other systems reviewed and negative Physical Exam - Vital signs Vitals: Temp Pulse Resp BP Pulse Ox 98.9 F 107 H 20 125/73 100 10/23/18 22:54 10/23/18 22:54 10/23/18 22:54 10/23/18 22:54 10/23/18 22:54 Interpretation: Normal - General General appearance: Appears well, Alert - HEENT Head: Normocephalic, Atraumatic Eyes: Normal Pupils: PERRL - Respiratory Respiratory status: No respiratory distress Chest status: Nontender Breath sounds: Normal Chest palpation: Normal - Cardiovascular Rhythm: Regular Heart sounds: Normal auscultation Murmur: No - Abdominal Inspection: Normal Distension: No distension Bowel sounds: Normal Tenderness: Nontender Organomegaly: No organomegaly - Rectal Notes: Patient with a anal tag present rectal examination reveals no external or internal hemorrhoids no blood when I retrieved my finger from the anus - Back Back: Normal, Nontender - Extremities General upper extremity: Normal inspection, Nontender, Normal color, Normal ROM, Normal temperature General lower extremity: Normal inspection, Nontender, Normal color, Normal ROM, Normal temperature, Normal weight bearing, Other - Examination of the left foot reveals no bruising or contusion there is no pain to palpation of the base of the fifth metatarsal pulses are intact right foot unaffected. No: Raciel's sign - Neurological Neuro grossly intact: Yes Cognition: Normal Orientation: AAOx4 Pat Coma Scale Eye Opening: Spontaneous [place] Coma Scale Verbal: Oriented Pat Coma Scale Motor: Obeys Commands [place] Coma Scale Total: 15 Speech: Normal Motor strength normal: LUE, RUE, LLE, RLE Sensory: Normal - Psychological Associated symptoms: Normal affect, Normal mood - Skin Skin Temperature: Warm Skin Moisture: Dry Skin Color: Normal Course - Re-evaluation Re-evalutation: 10/24/18 05:04 CBC shows no signs of anemia with patient's chronic rectal bleeding otherwise stable vital signs did recommend patient follow-up with gastroenterology. Patient agrees at this time. X-ray of the foot negative for signs of fracture. Were more likely sprain recommended nice fitting shoes ice Tylenol Motrin for pain control. Patient was discharged home - Vital Signs Vital signs: Temp Pulse Resp BP Pulse Ox 97.8 F 108 H 18 110/55 L 99 10/24/18 02:54 10/24/18 02:54 10/24/18 02:54 10/24/18 02:54 10/24/18 02:54 - Laboratory Result Diagrams: 10/24/18 01:31 Discharge - Discharge Clinical Impression: Rectal bleeding, Skin tags, anus or rectum Foot pain Qualifiers: Laterality: left Qualified Code(s): M79.672 - Pain in left foot Condition: Good Disposition: HOME, SELF-CARE Instructions: Gastroenterology, Ice & Elevation ([facility]), Ice Packs ([facility]), Rectal Bleeding, Unclear Cause ([facility]) Additional Instructions: Your x-ray today is negative for any signs of fracture. Laboratory studies not show any signs of significant anemia requiring blood transfusion. More likely the cause of your bleeding from the rectum is due to the anal tag that we see I would still recommend following up with a GI specialist for further evaluation of your rectal bleeding Return to the ER if symptoms worsen. Prescriptions: Ibuprofen [Motrin 600 mg Tablet] 600 mg PO Q8HP PRN #21 tablet PRN Reason: Referrals: ALEE PERRIN MD [Primary Care Provider] - Follow up as needed
[2018-10-24 02:59] VITALS: BP 110/55
== END 2018-10-24 03:09 | disposition home or self-care (01) ==
LOC: ER 22:40
DX: M79.672 Pain in left foot (principal); K62.5 Hemorrhage of anus and rectum; K64.4 Residual hemorrhoidal skin tags; E10.9 Type 1 diabetes mellitus without complications
CPT/HCPCS: 36415; 85025; 99283

== ENCOUNTER 2019-01-17 14:31 | Emergency (ER) | payer MEDICAID ==
[2019-01-17] MEDS ORDERED: KETOROLAC TROMETHAMINE INJ/PF 30 MG/1 ML SDV IV ONE (15:55)
[2019-01-17] MEDS ORDERED: NORMAL SALINE 1000 ML 1,000 ML IV ONE (15:55)
--- NOTE | 2019-01-17 15:57 | ER Document Report ---
ED Medical Screen (RME) - General Chief Complaint: Wrist Pain Stated Complaint: WRIST PAIN Time Seen by Provider: 01/17/19 15:40 Primary Care Provider: ALEE PERRIN MD [Primary Care Provider] - Follow up as needed Mode of Arrival: Ambulatory Information source: Patient Notes: Patient presents with multiple complaints. Patient complains of right forearm tenderness that started around 1030 this afternoon. Patient denies any known injury. Patient states she has pain with touching the area. Patient states that her hand became swollen and cold and she is worried about a circulation issue. Patient states that about 15 minutes after the wrist pain started she became short of breath and this is persisted. Patient also complains of headache and feeling disoriented and off-balance. Patient states she is also had a sore throat for the past 4 days. I have greeted and performed a rapid initial assessment of this patient. A comprehensive ED assessment and evaluation of the patient, analysis of test results and completion of the medical decision making process will be conducted by additional ED providers. TRAVEL OUTSIDE OF THE [place] IN LAST 30 DAYS: No - Related Data Allergies/Adverse Reactions: No Known Allergies Allergy (Verified 07/03/18 14:33) Past Medical History Endocrine Medical History: Reports: Hx Diabetes Mellitus Type 1 Renal/ Medical History: Denies: Hx Peritoneal Dialysis Past Surgical History: Reports: Hx Oral Surgery - wisdom teeth - Immunizations Immunizations up to date: Yes Hx Diphtheria, Pertussis, Tetanus Vaccination: Yes Physical Exam - Vital signs Vitals: Temp Pulse Resp BP Pulse Ox 98.3 F 94 16 107/67 97 01/17/19 14:55 01/17/19 14:55 01/17/19 14:55 01/17/19 14:55 01/17/19 14:55 - General General appearance: Appears well, Alert Notes: Patient without any objective dyspnea, respirations even unlabored, no tachycardia Course - Vital Signs Vital signs: Temp Pulse Resp BP Pulse Ox 98.3 F 94 16 107/67 97 01/17/19 14:55 01/17/19 14:55 01/17/19 14:55 01/17/19 14:55 01/17/19 14:55 Doctor's Discharge - Discharge Referrals: ALEE PERRIN MD [Primary Care Provider] - Follow up as needed
--- NOTE | 2019-01-17 16:26 | RADIOLOGY REPORT (SQ) ---
EXAM DESCRIPTION: CHEST 2 VIEWS COMPLETED DATE/TIME: 01/17/2019 4:11 pm REASON FOR STUDY: sob COMPARISON: 07/03/2018 EXAM PARAMETERS: NUMBER OF VIEWS: two views TECHNIQUE: Digital Frontal and Lateral radiographic views of the chest acquired. RADIATION DOSE: NA LIMITATIONS: none FINDINGS: LUNGS AND PLEURA: No opacities, masses or pneumothorax. No pleural effusion. MEDIASTINUM AND HILAR STRUCTURES: No masses or contour abnormalities. HEART AND VASCULAR STRUCTURES: Heart normal size. No evidence for failure. BONES: No acute findings. HARDWARE: None in the chest. OTHER: No other significant finding. IMPRESSION: NO ACUTE RADIOGRAPHIC FINDING IN THE CHEST. TECHNICAL DOCUMENTATION: JOB ID: [id number] [employer]- All Rights Reserved Reading location - IP/workstation name: [email or web address]
[2019-01-17 17:12] LABS: ABSOLUTE BASOPHILS # (AUTO) 0.1 10^3/uL (0.0-0.2); ABSOLUTE EOSINOPHILS # (AUTO) 0.1 10^3/uL (0.0-0.6); ABSOLUTE LYMPHOCYTES (AUTO) 2.4 10^3/uL (0.5-4.7); ABSOLUTE MONOCYTES (AUTO) 0.6 10^3/uL (0.1-1.4); ABSOLUTE NEUT (AUTO) 6.3 10^3/uL (1.7-8.2); BASOPHILS % (AUTO) 0.9 % (0-2); EOSINOPHILS % (AUTO) 1.1 % (0-6); HEMATOCRIT 43.3 % (36.0-47.0); HEMOGLOBIN 14.9 g/dL (12.0-15.5); LYMPHOCYTES % (AUTO) 25.4 % (13-45); MEAN CORPUSCULAR HEMOGLOBIN 29.2 pg (27.0-33.4); MEAN CORPUSCULAR HGB CONC 34.4 g/dL (32.0-36.0); MEAN CORPUSCULAR VOLUME 85 fl (80-97); MONOCYTES % (AUTO) 5.9 % (3-13); PLATELET COUNT 325 10^3/uL (150-450); RED BLOOD COUNT 5.08 10^6/uL (3.72-5.28); RED CELL DISTRIBUTION WIDTH 12.6 % (11.5-14.0); SEGMENTED NEUTROPHILS % (AUTO) 66.7 % (42-78); TOTAL CELLS COUNTED % (AUTO) 100 %; WHITE BLOOD COUNT 9.4 10^3/uL (4.0-10.5)
[2019-01-17 17:40] LABS: ANION GAP 12 (5-19); BLOOD UREA NITROGEN 10 mg/dL (7-20); CALCIUM 9.8 mg/dL (8.4-10.2); CARBON DIOXIDE 29 mmol/L (22-30); CHLORIDE 99 mmol/L (98-107); GLUCOSE 275 mg/dL (75-110); POTASSIUM 4.3 mmol/L (3.6-5.0); SODIUM 139.8 mmol/L (137-145)
--- NOTE | 2019-01-17 19:27 | ER Document Report ---
Addendum entered and electronically signed by NORMA OLIVAS PA-C 01/17/19 19:35: Discharge - Discharge Clinical Impression: Strep pharyngitis Condition: Stable Disposition: HOME, SELF-CARE Instructions: Acetaminophen, Strep Throat ([facility]) Additional Instructions: Home and rest. Medication as prescribed. Use warm salt water gargles or Chloraseptic spray for pain or discomfort in the throat. Ibuprofen alternate with Tylenol every 4 hours to keep the fever down. Push fluids but avoid milk and dairy for 48 hours. Return to ER for any concerns or problems. Prescriptions: Amoxicillin Trihydrate [Amoxil 875 mg Tablet] 1 tab PO BID #20 tablet Fluconazole [Diflucan] 150 mg PO ONCE PRN #1 tablet PRN Reason: Referrals: ALEE PERRIN MD [Primary Care Provider] - Follow up as needed Original Note: ED General - General Chief Complaint: Wrist Pain Stated Complaint: WRIST PAIN Time Seen by Provider: 01/17/19 15:40 Primary Care Provider: ALEE PERRIN MD [Primary Care Provider] - Follow up as needed Mode of Arrival: Ambulatory Information source: Patient, Relative Notes: Patient is a 1-year-old female comes emergency room with multiple somatic complaints. She came in originally complained of a hand or wrist that had all of a sudden turned cold. She also states that she felt a little short of breath lightheaded has a sore throat and has a fever. She denies any chest pain on my examination. She denies any other medical problems she does not smoke. TRAVEL OUTSIDE OF THE [place] IN LAST 30 DAYS: No - HPI Onset: Other Onset/Duration: Gradual, Worse Quality of pain: Achy Severity: Moderate Pain Level: 3 Associated symptoms: Chills, Nonproductive cough, Rhinnorhea, Shortness of breath Exacerbated by: Denies Relieved by: Denies Similar symptoms previously: No Recently seen / treated by doctor: No - Related Data Allergies/Adverse Reactions: No Known Allergies Allergy (Verified 07/03/18 14:33) Past Medical History - General Information source: Patient - Social History Smoking Status: Never Smoker Chew tobacco use (# tins/day): No Frequency of alcohol use: None Drug Abuse: None Family History: Reviewed & Not Pertinent Patient has suicidal ideation: No Patient has homicidal ideation: No Endocrine Medical History: Reports: Hx Diabetes Mellitus Type 1 Renal/ Medical History: Denies: Hx Peritoneal Dialysis Past Surgical History: Reports: Hx Oral Surgery - wisdom teeth - Immunizations Immunizations up to date: Yes Hx Diphtheria, Pertussis, Tetanus Vaccination: Yes Review of Systems - Review of Systems Constitutional: No symptoms reported EENT: Sinus pressure, Sinus discharge, Throat pain, Difficulty swallowing Cardiovascular: No symptoms reported Respiratory: See HPI, Short of breath Gastrointestinal: No symptoms reported Genitourinary: No symptoms reported Female Genitourinary: No symptoms reported Musculoskeletal: No symptoms reported Skin: No symptoms reported Hematologic/Lymphatic: No symptoms reported Neurological/Psychological: Other - Lightheaded -: Yes All other systems reviewed and negative Physical Exam - Vital signs Vitals: Temp Pulse Resp BP Pulse Ox 98.3 F 94 16 107/67 97 01/17/19 14:55 01/17/19 14:55 01/17/19 14:55 01/17/19 14:55 01/17/19 14:55 Interpretation: Normal - Notes Notes: PHYSICAL EXAMINATION: GENERAL: Well-appearing, well-nourished and in no acute distress. HEAD: Atraumatic, normocephalic. EYES: Pupils equal round and reactive to light, extraocular movements intact, conjunctiva are normal. ENT: Examination head and upper airway showed nasal mucosa to be mildly erythematous and edematous with some rhinorrhea that is yellowish in color. Patient displays no frontal or maxillary sinus tenderness to palpation. Bilateral TMs bulging slightly but no fluid levels noted. Posterior canal shows mild erythema no exudates are seen. Uvula is midline with mild erythema no exudate noticed. Airway is patent. NECK: Normal range of motion, supple with palpable bilateral anterior cervical lymphadenopathy. LUNGS: Breath sounds clear to auscultation bilaterally and equal. No wheezes rales or rhonchi. HEART: Regular rate and rhythm without murmurs ABDOMEN: Soft, nontender, nondistended abdomen. No guarding, no rebound. No masses appreciated. Female : deferred Musculoskeletal: Normal range of motion, no pitting or edema. No cyanosis. Further examination of patient's other area of concern is her wrist and hand. This is on the right side. Patient denied any history of trauma so the turn called all of a sudden and then went back to normal. Physical exam finds it to be normal temp compared to the left side. 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 She has good cap refill bilateral nailbeds of the hands. Patient has full range of motion of the wrist and arm as well as the elbow. There is no discrepancies it can be found at this time. NEUROLOGICAL: Normal speech, normal gait. Normal sensory, motor exams PSYCH: Normal mood, normal affect. SKIN: Warm, Dry, normal turgor, no rashes or lesions noted. Course - Re-evaluation Re-evalutation: 01/17/19 19:26 Patient's work-up was pretty systemic to include cardiac EKG lab work and throat culture all this came back negative for any acute findings except the throat culture was positive for strep. We will treat patient for strep and send her home with amoxicillin. - Vital Signs Vital signs: Temp Pulse Resp BP Pulse Ox 98.3 F 94 16 107/67 97 01/17/19 14:55 01/17/19 14:55 01/17/19 14:55 01/17/19 14:55 01/17/19 14:55 - Laboratory Result Diagrams: 01/17/19 17:00 01/17/19 17:00 Laboratory results interpreted by me: 01/17/19 17:00 Glucose 275 H Discharge - Discharge Clinical Impression: Strep pharyngitis Condition: Stable Disposition: HOME, SELF-CARE Instructions: Acetaminophen, Strep Throat ([facility]) Additional Instructions: Home and rest. Medication as prescribed. Use warm salt water gargles or Chloraseptic spray for pain or discomfort in the throat. Ibuprofen alternate with Tylenol every 4 hours to keep the fever down. Push fluids but avoid milk and dairy for 48 hours. Return to ER for any concerns or problems. Prescriptions: Amoxicillin Trihydrate [Amoxil 875 mg Tablet] 1 tab PO BID #20 tablet Fluconazole [Diflucan] 150 mg PO ONCE PRN #1 tablet PRN Reason: Referrals: ALEE PERRIN MD [Primary Care Provider] - Follow up as needed
[2019-01-17 20:04] VITALS: BP 106/83
--- NOTE | 2019-01-17 22:31 | EKG REPORT ---
SEVERITY:- NORMAL ECG - SINUS RHYTHM : Confirmed by: Silva Vargas 17-Jan-2019 22:30:51
== END 2019-01-17 20:04 | disposition home or self-care (01) ==
LOC: ER 14:31
DX: J02.0 Streptococcal pharyngitis (principal); M25.531 Pain in right wrist; E10.9 Type 1 diabetes mellitus without complications
CPT/HCPCS: 93005; 99284; 96374; 36415; 87880; 84703; 85025; 80048; 71046; 93010; J1885; J7030

== ENCOUNTER 2019-01-28 11:53 | Emergency (ER) | payer MEDICAID ==
[2019-01-28 12:08] VITALS: BP 117/71
[2019-01-28] MEDS ORDERED: FAMOTIDINE 20 MG TABLET PO ONE (13:10)
--- NOTE | 2019-01-28 13:10 | ER Document Report ---
HPI - HPI Patient complains to provider of: rash Time Seen by Provider: 01/28/19 13:00 Onset: Other Quality of pain: No pain Pain Level: 3 Context: Patient presents emergency department with possible allergic reaction. She reports started few days ago. She reports she was treated for strep throat over a week ago with amoxicillin. She is still taking her medications. She denies other symptoms such as fever vomiting diarrhea. Reports the bumps are itchy. Patient denies allergies. Patient reports rash to behind her ears, her legs arms. Patient also reports that she feels like she is having difficulty breathing. She is speaking in a clear voice, 02sat 99%. Associated Symptoms: None Exacerbated by: Denies Relieved by: Denies Similar symptoms previously: Yes Recently seen / treated by doctor: No - REPRODUCTIVE Reproductive: DENIES: : Past Medical History - General Information source: Patient Last Menstrual Period: 2 weeks ago - Social History Smoking Status: Never Smoker Chew tobacco use (# tins/day): No Frequency of alcohol use: None Drug Abuse: None Family History: Reviewed & Not Pertinent Patient has suicidal ideation: No Patient has homicidal ideation: No Renal/ Medical History: Denies: Hx Peritoneal Dialysis Past Surgical History: Reports: Hx Oral Surgery - wisdom teeth - Immunizations Immunizations up to date: Yes Hx Diphtheria, Pertussis, Tetanus Vaccination: Yes Vertical Provider Document - CONSTITUTIONAL Agree With Documented VS: Yes Exam Limitations: No Limitations General Appearance: WD/WN, No Apparent Distress - INFECTION CONTROL TRAVEL OUTSIDE OF THE [place] IN LAST 30 DAYS: No - HEENT HEENT: Atraumatic, Normocephalic. negative: Conjuctival Injection, Pharyngeal Erythema - NECK Neck: Normal Inspection, Supple - RESPIRATORY Respiratory: Breath Sounds Normal, No Respiratory Distress - CARDIOVASCULAR Cardiovascular: Regular Rate, Regular Rhythm - GI/ABDOMEN Gastrointestinal: Abdomen Soft - BACK Back: Normal Inspection - MUSCULOSKELETAL/EXTREMETIES Musculoskeletal/Extremeties: JUSTIN ALEXANDER - NEURO Level of Consciousness: Awake, Alert Motor/Sensory: No Motor Deficit - DERM Integumentary: Warm, Dry, Rash Adult Front & Back Diagram: 1 - 3-4 scattered hives noted 2 - faint flat erythema scattered to bilateral arms Course - Re-evaluation Re-evalutation: 01/28/19 Patient was instructed on Pepcid Benadryl. Patient has been prescribed an Epi Pen in the past most recently in August. She was instructed on the importance of follow-up with her primary care provider for a referral to an staff reporter. She verbalized understanding to all instructions. She was instructed to return to the emergency department for trouble breathing concerns. Dictation of this chart was performed using voice recognition software; therefore, there may be some unintended grammatical errors. - Vital Signs Vital signs: Temp Pulse Resp BP Pulse Ox 98.3 F 99 20 117/71 97 01/28/19 12:07 01/28/19 12:07 01/28/19 12:07 01/28/19 12:01/28/19 12:07 Discharge - Discharge Clinical Impression: rash, Urticaria Condition: Stable Disposition: HOME, SELF-CARE Instructions: Contact Dermatitis ([facility]), Use of Diphenhydramine Additional Instructions: *You have been treated for a rash, urticaria *Take pepcid as prescribed. Stop the amoxicillin *Monitor the site for signs of infection such as pain, redness, swelling, warmth *take benadryl as indicated *Follow up with a primary care provider within 5 days for recheck *Return to ED for signs of infection, worsening condition, changes, needs Prescriptions: Famotidine [Pepcid 20 mg Tablet] 20 mg PO DAILY #12 tablet Forms: Return to Work Referrals: ALEE PERRIN MD [Primary Care Provider] - Follow up in 3-5 days
== END 2019-01-28 13:34 | disposition home or self-care (01) ==
LOC: ER 11:53
DX: L50.9 Urticaria, unspecified (principal); R21 Rash and other nonspecific skin eruption
CPT/HCPCS: 99282; J3490

== ENCOUNTER 2019-07-09 22:39 | Emergency (ER) | payer SELFPAY ==
--- NOTE | 2019-07-09 23:07 | ER Document Report ---
ED General - General Chief Complaint: Lower Abdominal Pain Stated Complaint: ABDOMINAL PAIN RIGHT SIDE Time Seen by Provider: 07/09/19 23:07 Primary Care Provider: ALEE PERRIN MD [Primary Care Provider] - Follow up as needed TRAVEL OUTSIDE OF THE [place] IN LAST 30 DAYS: No - HPI Patient complains to provider of: abd pain Notes: 19 y/o presenting to ED for evaluation for RLQ abdominal pain no fever but has had nausea w/o vomiting no diarrhea no urinary pain no vaginal bleeding denies chance of she is a type 1 dm and on insulin pump - Related Data Allergies/Adverse Reactions: No Known Allergies Allergy (Verified 01/28/19 12:04) Home Medications: humalog sliding scale Past Medical History - Social History Smoking Status: Never Smoker Frequency of alcohol use: None Drug Abuse: None Family History: Reviewed & Not Pertinent Patient has suicidal ideation: No Patient has homicidal ideation: No Endocrine Medical History: Reports: Hx Diabetes Mellitus Type 1 Renal/ Medical History: Denies: Hx Peritoneal Dialysis Past Surgical History: Reports: Hx Oral Surgery - wisdom teeth - Immunizations Immunizations up to date: Yes Hx Diphtheria, Pertussis, Tetanus Vaccination: Yes Review of Systems - Review of Systems Constitutional: No symptoms reported EENT: No symptoms reported Cardiovascular: No symptoms reported Respiratory: No symptoms reported Gastrointestinal: Abdominal pain, Nausea. denies: Diarrhea, Vomiting Genitourinary: No symptoms reported Female Genitourinary: No symptoms reported Musculoskeletal: No symptoms reported Skin: No symptoms reported Hematologic/Lymphatic: No symptoms reported Neurological/Psychological: No symptoms reported Physical Exam - Vital signs Vitals: Temp Pulse Resp BP Pulse Ox 97.9 F 91 22 H 107/64 100 07/09/19 22:50 07/09/19 22:50 07/09/19 22:50 07/09/19 22:50 07/09/19 22:50 Interpretation: Normal - General General appearance: Appears well, Alert - HEENT Head: Normocephalic, Atraumatic Eyes: Normal Pupils: PERRL - Respiratory Respiratory status: No respiratory distress Chest status: Nontender Breath sounds: Normal Chest palpation: Normal - Cardiovascular Rhythm: Regular Heart sounds: Normal auscultation Murmur: No - Abdominal Inspection: Normal Distension: No distension Bowel sounds: Normal Tenderness: Tender - RLQ. No: McBurney's point, Guarding, Rebound Organomegaly: No organomegaly - Back Back: Normal, Nontender - Extremities General upper extremity: Normal inspection, Nontender, Normal color, Normal ROM, Normal temperature General lower extremity: Normal inspection, Nontender, Normal color, Normal ROM, Normal temperature, Normal weight bearing. No: Raciel's sign - Neurological Neuro grossly intact: Yes Cognition: Normal Orientation: AAOx4 Pat Coma Scale Eye Opening: Spontaneous Pat Coma Scale Verbal: Oriented Pat Coma Scale Motor: Obeys Commands [place] Coma Scale Total: 15 Speech: Normal Motor strength normal: LUE, RUE, LLE, RLE Sensory: Normal - Psychological Associated symptoms: Normal affect, Normal mood - Skin Skin Temperature: Warm Skin Moisture: Dry Skin Color: Normal Course - Re-evaluation Re-evalutation: 07/10/19 02:20 abdomen more or less benign on exam labs/CT unremarkable pain improved w/ ivf and toradol 07/10/19 02:20 return precautions given at time of dc - Vital Signs Vital signs: Temp Pulse Resp BP Pulse Ox 97.9 F 91 22 H 107/64 100 07/09/19 22:50 07/09/19 22:50 07/09/19 22:50 07/09/19 22:50 07/09/19 22:50 - Laboratory Result Diagrams: 07/09/19 23:54 07/09/19 23:54 Laboratory results interpreted by me: 07/09/19 07/09/19 23:54 23:54 Carbon Dioxide 21 L Glucose 191 H Urine Glucose (UA) >=500 H Discharge - Discharge Clinical Impression: Abdominal pain Qualifiers: Abdominal location: right lower quadrant Qualified Code(s): R10.31 - Right lower quadrant pain Condition: Stable Disposition: HOME, SELF-CARE Instructions: Abdominal Pain ([facility]) Additional Instructions: follow up with primary doctor for follow up return to ED with worsening Referrals: ALEE PERRIN MD [Primary Care Provider] - Follow up as needed
[2019-07-09] MEDS ORDERED: NORMAL SALINE 1000 ML 1,000 ML IV ONE (23:19)
[2019-07-09] MEDS ORDERED: KETOROLAC TROMETHAMINE INJ/PF 30 MG/1 ML SDV IV ONE (23:19)
[2019-07-09] MEDS ORDERED: ONDANSETRON HCL INJ/PF 4 MG/2 ML SDV IV ONE (23:19)
[2019-07-10 00:34] LABS: ABSOLUTE EOSINOPHILS # (AUTO) 0.1 10^3/uL (0.0-0.6); ABSOLUTE LYMPHOCYTES (AUTO) 2.8 10^3/uL (0.5-4.7); ABSOLUTE MONOCYTES (AUTO) 0.7 10^3/uL (0.1-1.4); ABSOLUTE NEUT (AUTO) 6.1 10^3/uL (1.7-8.2); BASOPHILS % (AUTO) 0.3 % (0-2); EOSINOPHILS % (AUTO) 1.1 % (0-6); HEMATOCRIT 43.3 % (36.0-47.0); HEMOGLOBIN 14.8 g/dL (12.0-15.5); MEAN CORPUSCULAR HEMOGLOBIN 29.7 pg (27.0-33.4); MEAN CORPUSCULAR HGB CONC 34.3 g/dL (32.0-36.0); MEAN CORPUSCULAR VOLUME 87 fl (80-97); MONOCYTES % (AUTO) 7.2 % (3-13); PLATELET COUNT 331 10^3/uL (150-450); RED BLOOD COUNT 4.99 10^6/uL (3.72-5.28); RED CELL DISTRIBUTION WIDTH 12.8 % (11.5-14.0); SEGMENTED NEUTROPHILS % (AUTO) 62.4 % (42-78); TOTAL CELLS COUNTED % (AUTO) 100 %; WHITE BLOOD COUNT 9.8 10^3/uL (4.0-10.5)
[2019-07-10 00:54] LABS: APPEARANCE,URINE CLEAR; BILIRUBIN,URINE NEGATIVE (NEGATIVE); COLOR,URINE STRAW; GLUCOSE, URINE >=500 mg/dL (NEGATIVE); KETONES,URINE NEGATIVE (NEGATIVE); LEUKOCYTE ESTERASE,URINE NEGATIVE (NEGATIVE); NITRITE,URINE NEGATIVE (NEGATIVE); PROTEIN,URINE NEGATIVE (NEGATIVE); URINE SPECIFIC GRAVITY 1.033; UROBILINOGEN,URINE NEGATIVE mg/dL (<2.0)
[2019-07-10 01:00] LABS: ALBUMIN 4.5 g/dL (3.5-5.0); ALKALINE PHOSPHATASE 90 U/L (38-126); ANION GAP 14 (5-19); ASPARTATE AMINO TRANSFERASE 25 U/L (14-36); BILIRUBIN,DIRECT 0.2 mg/dL (0.0-0.4); BILIRUBIN,TOTAL 0.4 mg/dL (0.2-1.3); BLOOD UREA NITROGEN 9 mg/dL (7-20); CALCIUM 9.5 mg/dL (8.4-10.2); CARBON DIOXIDE 21 mmol/L (22-30); CHLORIDE 106 mmol/L (98-107); GLUCOSE 191 mg/dL (75-110); POTASSIUM 3.8 mmol/L (3.6-5.0); TOTAL PROTEIN 7.9 g/dL (6.3-8.2)
--- NOTE | 2019-07-10 01:39 | RADIOLOGY REPORT (SQ) ---
EXAM DESCRIPTION: CT ABDOMEN PELVIS WITHOUT IV CONTRAST COMPLETED DATE/TME: 07/10/2019 00:00 CLINICAL HISTORY: 19 years, Female, R abd pain X2 HRS. HCG NEG COMPARISON: None. TECHNIQUE: 338 Images stored on PACS. All CT scanners at this facility use dose modulation, iterative reconstruction, and/or weight based dosing when appropriate to reduce radiation dose to as low as reasonably achievable (ALARA). [facility]: Dose Right [facility]: CareDose [facility]: Dose Right [facility]: Teradose 4D [facility]: Smart SubC Control LIMITATIONS: None. FINDINGS: The visualized lung bases are unremarkable. Osseous structures are grossly intact. Limited evaluation of the liver, spleen, adrenal glands, pancreas, kidneys are unremarkable. Gallbladder is present, contracted. Negative for urinary tract calculus or hydronephrosis. No gross evidence for bowel obstruction. Normal appendix. Abundant stool in the colon. No free air or free fluid IMPRESSION: No acute intra-abdominal/pelvic process TECHNICAL DOCUMENTATION: Quality ID # 436: Final reports with documentation of one or more dose reduction techniques (e.g., Automated exposure control, adjustment of the mA and/or kV according to patient size, use of iterative reconstruction technique) copyright 2010 [employer]- All Rights Reserved
[2019-07-10 02:54] VITALS: BP 104/53
== END 2019-07-10 03:29 | disposition home or self-care (01) ==
LOC: ER 22:39
DX: R10.31 Right lower quadrant pain (principal); E10.9 Type 1 diabetes mellitus without complications; Z79.4 Long term (current) use of insulin; Z96.41 Presence of insulin pump (external) (internal)
CPT/HCPCS: 36415; 83690; 85025; 81025; 80053; 81001; 74176; J1885; J2405; J7030

== ENCOUNTER 2019-07-17 04:13 | Emergency (ER) | payer SELFPAY ==
[2019-07-17] MEDS ORDERED: KETOROLAC TROMETHAMINE 60 MG/2 ML SDV IV ONE (05:45)
[2019-07-17] MEDS ORDERED: RINGERS SOLUTION,LACTATED 1,000 ML IV ONE ×2 (05:46→08:41)
--- NOTE | 2019-07-17 05:48 | ER Document Report ---
ED Medical Screen (RME) - General Chief Complaint: Sore Throat Stated Complaint: FEVER SORE THROAT Time Seen by Provider: 07/17/19 05:25 Notes: 19-year-old female who is a type I diabetic presents the emergency department complaining of a pain in her throat for the past 6 days that is been getting progressively worse. Patient states that over the past 2 to 3 days she has had more more difficulty talking, more more pain when she talks, more more difficulty swallowing and feeling like she has a lump in her throat. When she swallows it frequently triggers a cough and she feels like when she is swallowing sometimes is hard to even get liquids down. Patient does have some pain with extension of her neck but also states that when she flexes her neck she feels like everything is closing off and there is a mass there. She is a type I diabetic, T-max at home was 100.1, she does have an insulin pump and her sugars have been running into the 3-4 100s at home. TRAVEL OUTSIDE OF THE [place] IN LAST 30 DAYS: No - Related Data Allergies/Adverse Reactions: No Known Allergies Allergy (Verified 01/28/19 12:04) Home Medications: insulin pump Past Medical History - General Information source: Patient - Social History Cigarette use (# per day): No Chew tobacco use (# tins/day): No Frequency of alcohol use: None Drug Abuse: None Endocrine Medical History: Reports: Hx Diabetes Mellitus Type 1 Renal/ Medical History: Denies: Hx Peritoneal Dialysis Past Surgical History: Reports: Hx Oral Surgery - wisdom teeth - Immunizations Immunizations up to date: Yes Hx Diphtheria, Pertussis, Tetanus Vaccination: Yes Physical Exam - Vital signs Vitals: Temp Pulse Resp BP Pulse Ox 98.6 F 108 H 16 117/73 99 07/17/19 04:21 07/17/19 04:21 07/17/19 04:21 07/17/19 04:21 07/17/19 04:21 Interpretation: Tachycardic - Notes Notes: Patient has no obvious airway compromise at this time, she does have some postnasal drip but it is minimal, no tonsillar hypertrophy. Minimal anterior lymphadenopathy. Able to handle her own secretions. Complains of increased pain with neck extension. Course - Re-evaluation Re-evalutation: 07/17/19 05:48 Patient will be sent to CAT scan to look for a retropharyngeal abscess given her fever, compromised immune status as a diabetic and difficulty following and pain with neck extension. - Vital Signs Vital signs: Temp Pulse Resp BP Pulse Ox 98.6 F 108 H 16 117/73 99 07/17/19 04:21 07/17/19 04:21 07/17/19 04:21 07/17/19 04:21 07/17/19 04:21 - Laboratory Laboratory results interpreted by me: 07/17/19 05:29 POC Glucose 278 H
[2019-07-17 06:25] LABS: ABSOLUTE BASOPHILS # (AUTO) 0.1 10^3/uL (0.0-0.2); ABSOLUTE EOSINOPHILS # (AUTO) 0.1 10^3/uL (0.0-0.6); ABSOLUTE LYMPHOCYTES (AUTO) 2.2 10^3/uL (0.5-4.7); BASOPHILS % (AUTO) 0.6 % (0-2); MEAN CORPUSCULAR VOLUME 86 fl (80-97); TOTAL CELLS COUNTED % (AUTO) 100 %
[2019-07-17 06:26] LABS: VENOUS BLOOD PCO2 41.1 mmHg (35-63); VENOUS BLOOD PH 7.38 (7.30-7.42)
[2019-07-17 06:34] LABS: ABSOLUTE MONOCYTES (AUTO) 1.3 10^3/uL (0.1-1.4); ABSOLUTE NEUT (AUTO) 9.5 10^3/uL (1.7-8.2); EOSINOPHILS % (AUTO) 0.8 % (0-6); HEMATOCRIT 42.2 % (36.0-47.0); HEMOGLOBIN 14.2 g/dL (12.0-15.5); MEAN CORPUSCULAR HEMOGLOBIN 29.1 pg (27.0-33.4); MEAN CORPUSCULAR HGB CONC 33.7 g/dL (32.0-36.0); MONOCYTES % (AUTO) 9.7 % (3-13); PLATELET COUNT 351 10^3/uL (150-450); RED BLOOD COUNT 4.89 10^6/uL (3.72-5.28); RED CELL DISTRIBUTION WIDTH 12.8 % (11.5-14.0); SEGMENTED NEUTROPHILS % (AUTO) 71.9 % (42-78); WHITE BLOOD COUNT 13.2 10^3/uL (4.0-10.5)
[2019-07-17 06:53] LABS: ALBUMIN 4.4 g/dL (3.5-5.0); ALKALINE PHOSPHATASE 94 U/L (38-126); ANION GAP 13 (5-19); ASPARTATE AMINO TRANSFERASE 19 U/L (14-36); BILIRUBIN,DIRECT 0.2 mg/dL (0.0-0.4); BILIRUBIN,TOTAL 0.5 mg/dL (0.2-1.3); BLOOD UREA NITROGEN 11 mg/dL (7-20); CALCIUM 9.4 mg/dL (8.4-10.2); CARBON DIOXIDE 22 mmol/L (22-30); CHLORIDE 101 mmol/L (98-107); GLUCOSE 298 mg/dL (75-110); POTASSIUM 4.1 mmol/L (3.6-5.0)
--- NOTE | 2019-07-17 07:18 | ER Document Report ---
ED ENT - General Chief Complaint: Sore Throat Stated Complaint: FEVER SORE THROAT Time Seen by Provider: 07/17/19 05:25 Mode of Arrival: Ambulatory Information source: Patient, [facility] Records Notes: This 19-year-old female patient whose past medical history significant for type 1 diabetes on insulin pump. She reports for the last 6 days she has had a sore throat that is getting progressively worse. For the last 2 to 3 days, it is been increasingly difficult to talk and to swallow. She feels like a lump down in her throat when she swallows, and feels like a mass closing it off when she flexes her neck. There is pain in the anterior inferior neck on extension. She describes the throat discomfort is a little sharp and feeling very dry. She has an occasional cough associated with this. At home she reports a temperature of 100.1 maximum, her blood sugars have been running in the 300-400 range. TRAVEL OUTSIDE OF THE [place] IN LAST 30 DAYS: No - Related Data Allergies/Adverse Reactions: No Known Allergies Allergy (Verified 01/28/19 12:04) Home Medications: insulin pump Past Medical History - General Information source: Patient, [facility] Records - Social History Smoking Status: Never Smoker Cigarette use (# per day): No Chew tobacco use (# tins/day): No Smoking Education Provided: No Frequency of alcohol use: None Drug Abuse: None Lives with: Friend Family History: Reviewed & Not Pertinent Patient has suicidal ideation: No Patient has homicidal ideation: No Endocrine Medical History: Reports: Hx Diabetes Mellitus Type 1 Past Surgical History: Reports: Hx Oral Surgery - wisdom teeth - Immunizations Immunizations up to date: Yes Hx Diphtheria, Pertussis, Tetanus Vaccination: Yes Review of Systems - Review of Systems Constitutional: See HPI, Fever EENT: Throat pain, Difficulty swallowing, Throat swelling Cardiovascular: No symptoms reported Respiratory: Cough Gastrointestinal: No symptoms reported Genitourinary: No symptoms reported Female Genitourinary: No symptoms reported Musculoskeletal: No symptoms reported Skin: No symptoms reported Hematologic/Lymphatic: No symptoms reported Neurological/Psychological: No symptoms reported Physical Exam - Vital signs Vitals: Temp Pulse Resp BP Pulse Ox 98.6 F 108 H 16 117/73 99 07/17/19 04:21 07/17/19 04:21 07/17/19 04:21 07/17/19 04:21 07/17/19 04:21 Interpretation: Normal, Tachycardic - General General appearance: Appears well, Other - Patient was sleeping. She sat up and spoke with me for history and physical. She would frequently nod off while she was sitting up and talking with me. In distress: None Notes: Voice is slightly hoarse. She states that is been going on for the past 2 to 3 days and getting worse. - HEENT Head: Normocephalic, Atraumatic Eyes: Normal Pupils: PERRL Nasal: Normal Mouth/Lips: Normal Mucous membranes: Normal Pharynx: Erythema, Other - Posterior pharynx does not have any swelling exudate or uvular edema. It does have some erythema that is suggestive of a viral pharyngitis.. No: Exudate, Uvular edema Neck: Other - There is some tenderness in the anterior inferior neck region. There is some slight prominence to the thyroid gland on either side of the neck, they are not tender. - Respiratory Respiratory status: No respiratory distress Breath sounds: Normal - Cardiovascular Rhythm: Regular Heart sounds: Normal auscultation Murmur: No - Abdominal Inspection: Normal Bowel sounds: Normal - Back Back: Normal - Extremities General upper extremity: Normal inspection, Other - Insulin pump infusing in the right upper arm. General lower extremity: Normal inspection - Neurological Neuro grossly intact: Yes - Psychological Associated symptoms: Normal affect, Normal mood - Skin Skin Temperature: Warm Skin Moisture: Dry Skin Color: Normal Course - Vital Signs Vital signs: Temp Pulse Resp BP Pulse Ox 98.5 F 86 16 94/42 L 99 07/17/19 08:49 07/17/19 08:49 07/17/19 08:49 07/17/19 08:49 07/17/19 04:21 - Laboratory Result Diagrams: 07/17/19 06:09 07/17/19 06:09 Laboratory results interpreted by me: 07/17/19 07/17/19 07/17/19 05:29 06:09 06:09 WBC 13.2 H Absolute Neuts (auto) 9.5 H Sodium 136.2 L Creatinine 0.49 L Glucose 298 H POC Glucose 278 H - Diagnostic Test Radiology reviewed: Image reviewed, Reports reviewed - IV contrasted soft tissue scan of the neck does not show abnormalities. Discharge - Discharge Clinical Impression: Acute viral pharyngitis, Hyperglycemia due to type 1 diabetes mellitus Condition: Stable Disposition: HOME, SELF-CARE Additional Instructions: Sore Throat: Sore throats may be caused by viruses, bacteria, or fungi. Most are due to a virus, and must get better on their own. Bacterial sore throats, particularly those due to "strep," need treatment with antibiotics. If an antibiotic is prescribed, be sure to take the medication for a full 10 days. Failure to take the antibiotic can result in complications such as rheumatic fever. Sometimes, an injection of antibiotics is given instead of pills or liquid. This single "shot" is equal in effectiveness to the oral medication. To relieve symptoms, take acetaminophen for pain. Sip clear liquids frequently, or eat popsicles or ice chips. Anesthetic sprays or lozenges may help. Make sure the air in the room is not too dry. Avoid using decongestants or antihistamines. Laryngitis: You have laryngitis. This is an inflammation of the vocal cords which leads to inability to speak normally. Any irritation to the airway can cause laryngitis. Causes include virus infection, smoke inhalation, allergy, or even trauma due to excessive talking or shouting. Rest your voice. Any vibration of the vocal cords increases and prolongs the swelling. Humidity is helpful, especially cool mist. Avoid dust, chemical fumes, and smoke. Avoid decongestants and antihistamines -- these will make you worse. You can expect to recover completely in a few days. See the physician if new symptoms develop, such as high fever, productive cough, shortness of breath, or if you do not improve within a few days. Drink plenty of cool clear fluids. Avoid caffeine. Get plenty of rest Take the prednisone as prescribed. Take Tylenol and ibuprofen for pain as needed. Adjust your insulin doses based on your blood sugar readings, as the prednisone will cause your blood sugars to go higher. Follow-up with your primary care provider if not improving over the next several days. RETURN TO THE EMERGENCY ROOM IF ANY NEW OR WORSENING SYMPTOMS. Prescriptions: Prednisone [Deltasone 10 mg Tablet] 10 mg PO ASDIR PRN #10 tablet PRN Reason:
[2019-07-17] MEDS ORDERED: METHYLPREDNISOLONE INJ 125 MG/2 ML SDV IV ONE (08:20)
--- NOTE | 2019-07-17 08:27 | RADIOLOGY REPORT (SQ) ---
EXAM DESCRIPTION: CT SOFT TISSUE NECK WITH COMPLETED DATE/TIME: 07/17/2019 8:12 am REASON FOR STUDY: pain, diff swallowing, "lump" r/o RPA COMPARISON: None. TECHNIQUE: Post IV contrasted scanning from skull base through lung apices with review of bone, soft tissue and lung windows. Reconstructed coronal and sagittal MPR images reviewed. All images stored on PACS. All CT scanners at this facility use dose modulation, iterative reconstruction, and/or weight based d osing when appropriate to reduce radiation dose to as low as reasonably achievable (ALARA). [facility]: Dose Right [facility]: CareDose [facility]: Dose Right [facility]: Teradose 4D [facility]: [employer] CONTRAST TYPE AND DOSE: contrast/concentration: Isovue 350.00 mg/ml; Total Contrast Delivered: 52.0 ml; Total Saline Delivered: 15.0 ml RENAL FUNCTION: None required. The patient is less than 50 years old. RADIATION DOSE: CT Rad equipment meets quality standard of care and radiation dose reduction techniq ues were employed. CTDIvol: 14.2 mGy. DLP: 425 mGy-cm. . LIMITATIONS: None. FINDINGS: SKULL BASE: Intact. MAJOR SALIVARY GLANDS: No solid or cystic masses. No inflammatory changes. LYMPHADENOPATHY: No bulky adenopathy. MUCOSAL MASSES OR ASYMMETRY: No mucosal masses or asymmetry. LARYNX/CORDS: No abnormal findings. VASCULAR STRUCTURES: The major vessels are patent. LUNG APICES: Clear. BONES: Intact. THYROID: Normal size. No masses. PARANASAL SINUSES: Clear. OTHER: Findings discussed with Dr García IMPRESSION: NO SIGNIFICANT FINDING IN THE SOFT TISSUES OF THE NECK. TECHNICAL DOCUMENTATION: JOB ID: [id number] Quality ID # 436: Final reports with documentation of one or more dose reduction techniques (e.g., Au tomated exposure control, adjustment of the mA and/or kV according to patient size, use of iterative reconstruction technique) 2010 [employer]- All Rights Reserved Reading location - IP/workstation name: [email or web address]
[2019-07-17 08:50] VITALS: BP 94/42
== END 2019-07-17 09:18 | disposition home or self-care (01) ==
LOC: ER 04:13
DX: J02.8 Acute pharyngitis due to other specified organisms (principal); B97.89 Other viral agents as the cause of diseases classified elsewhere; R50.9 Fever, unspecified; E10.65 Type 1 diabetes mellitus with hyperglycemia; Z96.41 Presence of insulin pump (external) (internal); R13.10 Dysphagia, unspecified; R05 Cough; R49.0 Dysphonia
CPT/HCPCS: 36415; 87070; 87880; 82962; 85025; 80053; 82803; 70491; J1885; J2930; J7120; 96361; 96374; 96375; 99283

== ENCOUNTER 2020-06-07 21:08 | Emergency (ER) | payer SELFPAY ==
--- NOTE | 2020-06-07 21:43 | ER Document Report ---
ED Medical Screen (RME) - General Chief Complaint: Foot Pain Stated Complaint: FOOT PAIN Time Seen by Provider: 06/07/20 21:26 Mode of Arrival: Ambulatory Information source: Patient Notes: 20-year-old female patient presents emergency department chief complaint of right foot pain. Patient reports history of plantar fasciitis, states this pain has been there for about 3 days and feels different than her plantar fasciitis. Patient denies any direct trauma to the area. Patient offered pain medication, she has declined this. X-ray orders placed. Patient requesting an MRI of her foot. I explained to the patient that we do not do nonemergent MRIs in the emergency department. She was not particularly happy about this because she states that she had an MRI of her foot done in 2019 when she was initially diagnosed with plantar fasciitis. Upon review of the records patient did not have an MRI she had an x-ray. This was explained to the patient. I have greeted and performed a rapid initial assessment of this patient. A comprehensive ED assessment and evaluation of the patient, analysis of test results and completion of the medical decision making process will be conducted by additional ED providers. I have specifically instructed the patient or family members with the patient to immediately return to any nursing staff should anything change in the patient's condition or with their chief complaint. TRAVEL OUTSIDE OF THE [place] IN LAST 30 DAYS: No - Related Data Allergies/Adverse Reactions: No Known Allergies Allergy (Verified 01/28/19 12:04) Home Medications: insulin Past Medical History - Social History Frequency of alcohol use: Rare Endocrine Medical History: Reports: Hx Diabetes Mellitus Type 1 Renal/ Medical History: Denies: Hx Peritoneal Dialysis Past Surgical History: Reports: Hx Oral Surgery - wisdom teeth - Immunizations Immunizations up to date: Yes Hx Diphtheria, Pertussis, Tetanus Vaccination: Yes Physical Exam - Vital signs Vitals: Temp Pulse Resp BP Pulse Ox 98.9 F 103 H 16 127/78 H 98 06/07/20 21:25 06/07/20 21:25 06/07/20 21:25 06/07/20 21:25 06/07/20 21:25 Course - Vital Signs Vital signs: Temp Pulse Resp BP Pulse Ox 98.9 F 103 H 16 127/78 H 98 06/07/20 21:25 06/07/20 21:25 06/07/20 21:25 06/07/20:25 06/07/20 21:25
--- NOTE | 2020-06-07 22:35 | RADIOLOGY REPORT (SQ) ---
EXAM DESCRIPTION: XR FOOT 3 OR MORE VIEWS COMPLETED DATE/TME: 06/07/2020 21:39 CLINICAL HISTORY: 20 years, Female, R foot pain COMPARISON: EXAM DESCRIPTION: CLINICAL HISTORY: R foot pain COMPARISON: None FINDINGS: 3 view(s) submitted. No fracture or dislocation is identified. Bone marrow attenuation is unremarkable. No radiopaque foreign body is identified. IMPRESSION: No acute fracture or dislocation.
[2020-06-08] MEDS ORDERED: IBUPROFEN 600 MG TABLET PO ONE (09:56)
[2020-06-08] MEDS ORDERED: PREDNISONE 20 MG TABLET PO ONE (09:56)
--- NOTE | 2020-06-08 09:56 | ER Document Report ---
HPI - HPI Time Seen by Provider: 06/07/20 21:26 Pain Level: 2 Notes: 20-year-old female patient presents emergency department chief complaint of right foot pain. Patient reports history of plantar fasciitis, states this pain has been there for about 3 days and feels different than her plantar fasciitis. Patient denies any direct trauma to the area. Patient offered pain medication, she has declined this. X-ray orders placed. Patient requesting an MRI of her foot. I explained to the patient that we do not do nonemergent MRIs in the emergency department. She was not particularly happy about this because she states that she had an MRI of her foot done in 2019 when she was initially diagnosed with plantar fasciitis. Upon review of the records patient did not have an MRI she had an x-ray. This was explained to the patient. - ROS Systems Reviewed and Negative: Yes All other systems reviewed and negative - REPRODUCTIVE Reproductive: DENIES: : - MUSCULOSKELETAL Musculoskeletal: REPORTS: Extremity pain Past Medical History - General Information source: Patient - Social History Smoking Status: Never Smoker Frequency of alcohol use: Rare Family History: Reviewed & Not Pertinent Endocrine Medical History: Reports: Hx Diabetes Mellitus Type 1 Renal/ Medical History: Denies: Hx Peritoneal Dialysis Past Surgical History: Reports: Hx Oral Surgery - wisdom teeth - Immunizations Immunizations up to date: Yes Hx Diphtheria, Pertussis, Tetanus Vaccination: Yes Vertical Provider Document - CONSTITUTIONAL Notes: PHYSICAL EXAMINATION: GENERAL: Well-appearing, well-nourished and in no acute distress. HEAD: Atraumatic, normocephalic. EYES: Pupils equal round extraocular movements intact, conjunctiva are normal. ENT: Nares patent NECK: Normal range of motion LUNGS: No respiratory distress Musculoskeletal: Normal range of motion, slight swelling noted to dorsal surface of left foot, no erythema, ecchymosis or other abnormality. Strong dorsalis pedis pulse, cap refill less than 3 seconds. NEUROLOGICAL: Normal speech, normal gait. PSYCH: Normal mood, normal affect. SKIN: Warm, Dry, normal turgor, no rashes or lesions noted. - INFECTION CONTROL TRAVEL OUTSIDE OF THE [place] IN LAST 30 DAYS: No Course - Re-evaluation Re-evalutation: Patient appears well, nontoxic. Foot x-ray was negative. Patient reports pain and swelling to the foot. We will give her a short course of steroids. I did counselor at law her that this may make her blood glucose elevated temporarily. I also gave her information on the [facility] as patient is a type I diabetic with no insurance and has been buying her medications without a prescription from [facility]. The patient's emergency department workup and current diagnosis were explained to the patient and or family. Follow-up instructions were provided. Medications if prescribed were discussed. Instructions for when to return to the emergency department including specific worrisome symptoms were discussed with the patient and/or family. - Vital Signs Vital signs: Temp Pulse Resp BP Pulse Ox 98.7 F 99 16 111/72 99 06/08/20 00:54 06/08/20 00:54 06/08/20 00:54 06/08/20 00:54 06/08/20 00:54 Discharge - Discharge Clinical Impression: Right foot pain Condition: Stable Disposition: HOME, SELF-CARE Additional Instructions: Your x-ray was negative for any fracture or dislocation. Please take medications as prescribed. Please wear the Ravindra wrap this may help with compression. Please follow-up with the [facility], they may be able to help you with your insulin and also referrals to appropriate specialist. Please be mindful that the prednisone may elevate your glucose while you are taking it. Prescriptions: Prednisone [Deltasone 20 mg Tablet] 3 tab PO DAILY 4 Days #12 tablet
[2020-06-08 09:57] VITALS: BP 109/65
== END 2020-06-08 10:15 | disposition home or self-care (01) ==
LOC: ER 21:08
DX: M79.671 Pain in right foot (principal); E10.9 Type 1 diabetes mellitus without complications
CPT/HCPCS: 99283; 73630; J7512

== ENCOUNTER 2020-07-27 16:08 | Emergency (ER) | payer SELFPAY ==
--- NOTE | 2020-07-27 17:09 | ER Document Report ---
ED General - General Chief Complaint: Vaginal Pain Stated Complaint: VAGINAL PAIN,SKIN SORES Primary Care Provider: KIRSTIN DAILY MD [ACTIVE STAFF] - Follow up as needed Notes: Chief Complaint: Vaginal rash Historian: History obtained from patient HPI: This is a 20-year-old female presents to the emergency department complaining of vaginal sores x2 months. This began shortly after having unprotected sexual intercourse with a male partner. She denies abdominal pain flank pain fevers chills or vaginal discharge. She does have intermittent dysuria. No treatments tried. Denies history of any prior STDs. ROS: Constitutional: no fevers. HEENT: no NATARAJAN, sore throat, or vision changes. CV: no chest pain or palpitations. Resp: no cough or SOB. GI: no abdominal pain, or n/v/d. : intermittent dysuria, genital rash X 2 months. MSK: no back pain, no joint swelling/redness. Skin: genital rash Neuro: no seizures, weakness, numbness, or confusion. Hematological: no ecchymosis or easy bleeding. Endocrine: no polyuria/polydipsia, no heat/cold intolerance. Psych: no SI/HI, AH/VH or memory loss. PMHx: Reviewed and agree as charted by RN. PSHx: Reviewed and agree as charted by RN. SOCHx: Reviewed and agree as charted by RN. FHX: No significant familial comorbid conditions directly related to patient complaint Current Medications: Reviewed and agree with the patient medications as charted by the RN. Allergies: Reviewed and agree with the listed allergies as charted by the RN Physical Exam: Vitals: Reviewed in chart as documented by RN. General: Alert and in NAD. Head: Normocephalic; atraumatic Eyes: PERRLA, Conjunctivae clear sclerae non-icteric bilat ENT: no soft palate swelling or uvular deviation Neck: trachea midline, no unilateral swelling/tenderness/lymphadenopathy CV: RRR, no M/R/G; symmetric distal pulses Resp: respirations even and unlabored, CTA bilat. GI: abd soft and nondistended. NTTP. normal BS. no masses/HSM. no CVAT bilat - external genitalia- cauliflower like skin lesions to inferior portion of labia minora and introitus. lesions are bilateral. nttp. no drainage/erythema/swelling/induration. Pelvic: Vagina: moderate dark blood in vaginal vault, no discharge. no foreign bodies visualized. Unable to visualize cervix as patient's never had a pelvic exam before and she cannot tolerate procedure. I made the decision to stop the pelvic exam due to pts discomfort. Chaperoned by female RN/MD MSK: FROM of all extremities. No midline CTL spine tenderness/deformity Skin: warm, moist, good turgor. no rash/lesions Neuro: Alert and oriented X 4. following CN 2-12 intact. no unilateral weakness/numbness Psych: No SI/HI or AH/VH. ED Results: Medical Decision-Making: -- DDX- UTI, pyelonephritis, nephrolithiasis, cystitis, BV, STD, herpes, condyloma, syphilis, trich, BV, g/c, ectopic, urinary obstruction, hydronephrosis, PID, IUP, folliculitis, bartholin gland cyst, HPV, chancre, ect Plan- UA, reflex C/S, preg test, pelvic exam, wet prep, GC swabs, HSV swab. Does not get regular Pap smears. I stressed the importance of this considering patient likely has HPV. Will give patient a referral to [facility]. Also discussed sexual precautions and to inform partners to get treated and/or tested. Strict return factors were discussed. Urinalysis reassuring. Wet prep noted some yeast will give patient a dose of fluconazole for discharge. Current plan as above Diagnosis: genital warts, vaginal yeast. Condition: stable Disposition: discharge home TRAVEL OUTSIDE OF THE [place] IN LAST 30 DAYS: No - Related Data Allergies/Adverse Reactions: No Known Allergies Allergy (Verified 07/27/20 17:03) Past Medical History - Social History Smoking Status: Unknown if Ever Smoked Family History: Reviewed & Not Pertinent Endocrine Medical History: Reports: Hx Diabetes Mellitus Type 1 Renal/ Medical History: Denies: Hx Peritoneal Dialysis Past Surgical History: Reports: Hx Oral Surgery - wisdom teeth - Immunizations Immunizations up to date: Yes Hx Diphtheria, Pertussis, Tetanus Vaccination: Yes Physical Exam - Vital signs Vitals: Temp Pulse Resp BP Pulse Ox 99.4 F 95 20 119/84 99 07/27/20 16:14 07/27/20 16:14 07/27/20 16:14 07/27/20 16:14 07/27/20 16:14 Course - Vital Signs Vital signs: Temp Pulse Resp BP Pulse Ox 99.4 F 95 20 119/84 99 07/27/20 16:14 07/27/20 16:14 07/27/20 16:14 07/27/20 16:14 07/27/20 16:14 - Laboratory Laboratory results interpreted by me: 07/27/20 17:35 Urine Glucose (UA) >=500 H Urine Ketones TRACE H Urine Blood LARGE H Discharge - Discharge Clinical Impression: Genital warts, Yeast infection Condition: Stable Disposition: HOME, SELF-CARE Instructions: Genital Warts ([facility]), Vaginal Yeast Infection ([facility]) Additional Instructions: Call and Dr. Kirstin Daily with obgyn for further evaluation and to establish care. We will call you if any your STD tests are positive. You likely have genital warts and this is an STD. Inform sexual partners to get tested/treated. always practice safe sex with condoms. Return to the ER if your condition worsens. Referrals: KIRSTIN DAILY MD [ACTIVE STAFF] - Follow up as needed Print Language: Norwegian
--- NOTE | 2020-07-27 17:14 | ER Document Report ---
ED GI/ - General Chief Complaint: Vaginal Itching Stated Complaint: VAGINAL PAIN,SKIN SORES Mode of Arrival: Ambulatory Notes: 09/27/19 17:04 - ED Nursing Note by MIGUEL MOHR [facility] Num: [id number] : 2000 Patient Age: 20 Pt. reports to the ED via with C/O bumps to the vagina. Pt. states about 2 months ago she had unprotected sex and noticed some bumps that have spread to cover the whole vagina at this time. Pt. states they are not painful, but they do swell from time to time. Pt. is currently on her period. Pt. A+O x4 respirations even and unlabored. TRAVEL OUTSIDE OF THE [place] IN LAST 30 DAYS: No - Related Data Allergies/Adverse Reactions: No Known Allergies Allergy (Verified 07/27/20 17:03) Past Medical History - Social History Smoking Status: Never Smoker Family History: Reviewed & Not Pertinent Patient has homicidal ideation: No Endocrine Medical History: Reports: Hx Diabetes Mellitus Type 1 Renal/ Medical History: Denies: Hx Peritoneal Dialysis Past Surgical History: Reports: Hx Oral Surgery - wisdom teeth - Immunizations Immunizations up to date: Yes Hx Diphtheria, Pertussis, Tetanus Vaccination: Yes Physical Exam - Vital signs Vitals: Temp Pulse Resp BP Pulse Ox 99.4 F 95 20 119/84 99 07/27/20 16:14 07/27/20 16:14 07/27/20 16:14 07/27/20 16:14 07/27/20 16:14 Course - Vital Signs Vital signs: Temp Pulse Resp BP Pulse Ox 99.4 F 95 20 119/84 99 07/27/20 16:14 07/27/20 16:14 07/27/20 16:14 07/27/20 16:14 07/27/20 16:14
[2020-07-27 18:17] LABS: APPEARANCE,URINE CLEAR; BILIRUBIN,URINE NEGATIVE (NEGATIVE); COLOR,URINE STRAW; GLUCOSE, URINE >=500 mg/dL (NEGATIVE); KETONES,URINE TRACE mg/dL (NEGATIVE); LEUKOCYTE ESTERASE,URINE NEGATIVE (NEGATIVE); NITRITE,URINE NEGATIVE (NEGATIVE); PROTEIN,URINE NEGATIVE (NEGATIVE); URINE SPECIFIC GRAVITY 1.018; UROBILINOGEN,URINE NEGATIVE mg/dL (<2.0)
[2020-07-27 18:27] LABS: BACTERIA (WET MOUNT) 4+ BACTERIA SEEN; EPITHELIALS (WET MOUNT) 3+ EPITHELIALS SEEN; RBCS (WET MOUNT) 4+ RBCS SEEN; T.VAGINALIS (WET MOUNT) NO TRICHOMONAS SEEN; WBCS (WET MOUNT) FEW WBCS SEEN; YEAST (WET MOUNT) YEAST SEEN
[2020-07-27] MEDS ORDERED: FLUCONAZOLE 100 MG TABLET PO ONE (19:07)
[2020-07-27 19:47] LABS: CHLAM PCR NOT DETECTED (NOT DETECT)
[2020-07-27 19:50] VITALS: BP 124/74
== END 2020-07-27 19:47 | disposition home or self-care (01) ==
LOC: ER 16:08
DX: B07.9 Viral wart, unspecified (principal); B37.3 Candidiasis of vulva and vagina; R30.0 Dysuria; E10.9 Type 1 diabetes mellitus without complications
CPT/HCPCS: 81001; 81025; 87210; 87250; 87491; 87591; 99283